=== PATIENT | female | born 1960 | race Caucasian/White ===

== ENCOUNTER 2016-07-01 10:38 | Observation (INO) | payer MEDICARE, MEDICAID ==
[~2016-07-01] VITALS: Ht 167.6 cm; Wt 63.6 kg
[~2016-07-01 10:38] MED LIST: GABA-502 PO; LISI10TA PO; MS30TCR PO; ONDA4TAB6 PO; OXYC10TA8 PO; POLY17PO6 PO; SENN-133 PO
[2016-07-01 10:45] VITALS: BP 145/96; PULSE 92; RESP 16; O2SAT 97
--- NOTE | 2016-07-01 10:47 | ED.REPORT ---
HPI-Abd Pain F 40 and Over Date of Service Jul 01, 2016 ED Provider: Heriberto Mathews DO A 56 year old female with a history of hypertension, peripheral neuropathy, chronic back pain, and recurrent N/V presents to the ED complaining of intractable vomiting that began yesterday. Associated symptoms include mild abdominal tenderness, subjective fever and chills. Patient took Zofran 4 hours ago with no relief. She been experiencing chronic N/V for the past year. She currently takes 4 10mg of oxycodone per day for chronic pain and Promethazine/ Zofran for recurrent nausea vomiting. She denies cough with sputum or mucus, dysuria or diarrhea. Nursing Notes Stated Complaint: NAUSEA/VOMITING Chief Complaint: Female Abdominal Pain Nursing Notes Reviewed: Yes Allergies: Coded Allergies: Sulfa (Sulfonamide Antibiotics) (Verified Allergy, Intermediate, 07/01/16) Scheduled Gabapentin (Gabapentin) 300 Mg Capsule 900 MG PO TID Lisinopril (Lisinopril) 10 Mg Tablet 10 MG PO DAILY Morphine Sulfate ER (MS Contin) 30 Mg Tablet.er 30 MG PO BID Scheduled PRN Ondansetron (Zofran) 4 Mg Tablet 4 MG PO Q8H PRN PRN For Nausea Polyethylene Glycol 3350 (Miralax) 17 Gm Powd.pack 17 GM PO DAILY PRN PRN For Constipation Sennosides (Senna) 8.6 Mg Tablet 17.2 MG PO BID PRN PRN For Constipation oxyCODONE (oxyCODONE) 10 Mg Tablet 10 MG PO Q4-6H PRN PRN For Pain General Time Seen by MD: 10:44 Chief Complaint Vomiting mild Hx Obtained From: Patient Arrived By: Walk-in Sudden in Onset?: No Onset Occurred: Yesterday Symptom Duration: Since onset Progression since Onset: Unchanged Location: : Epigastric Quality: Cramping Radiation: : Does not radiate Severity: Current: Mild Severity: Maximum: Mild Associated with: Reports: Nausea, Vomiting Pertinent Negative: Pt denies other symptoms Recent Healthcare: Recent doctor visit, Recent hospitalization Risk Factors )( AAA Risk Stratification Risk factors reviewed Past Medical History Past Medical History Notes: -- [facility] is PCP Chronic Pain: MS Contin 30 BID, Oxycodone 10mg 4x/d, and Gabapentin per note 06/10/16 Patient admitted 06/10- for intractable NV/cyclic vomiting Past Medical History Scoliosis. Back pain Hypertension. Peripheral neuropathy following Hooper gloria surgery. Pt has h/o [facility] ED visits for intractible N/V Reports: Hypertension Past Surgical History 6x Back surgeries including: Spinal cord stimulator implant. Hooper gloria placement and replacement. Debridement of ulcer on her left foot. Vertebral fracture repair July 2014. Multiple epidurals for back pain relief. 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 Ambulatory at baseline with braces. lives by self Ambulatory Status Cane Review of Systems Constitutional: Reports: Chills, Fever Respiratory: Denies: Non-productive cough, Shortness of breath GI: Reports: Abdominal pain, Nausea, Vomiting, Denies: Diarrhea Female: Denies: Dysuria Complete sys rev & neg: except as marked. Physical Exam Vital Signs Vital Signs (First) Date Time Temp Pulse Resp B/P Pulse Ox O2 Delivery O2 Flow Rate FiO2 07/01/16 10:45 36.7 92 16 145/96 97 Room Air 07/01/16 14:18 2 Initial VS: Reviewed Head / Eyes: Atraumatic, Normocephalic, PERRL Extremities: Vascular intact, Neuro intact, No swelling, No tenderness Skin: Warm, Dry, No cyanosis Neurologic: Alert, Oriented, Nonfocal Psychiatric: Mood/affect normal, Behavior normal, Normal thought content General/Constitutional: Awake, Alert Respiratory / Chest: Atraumatic, Breath sounds NL, Breath sounds = bilat Cardiovascular: Heart rate NL, Regular rhythm, Heart sounds NL Abdomen: Atraumatic, Soft, Non-tender Back: Atraumatic, Inspection NL Interpretation & Diagnostics Lab Results Interpretation Result Diagram: 07/01/16 1300 07/01/16 1300 Test 07/01/16 13:00 07/01/16 13:36 White Blood Count 5.8th/mm3 (3.8-10.1) Red Blood Count 4.49mil/mm3 (3.90-5.20) Hemoglobin 12.9g/dL (12.0-15.6) Hematocrit 37.4% (35.0-46.0) Mean Corpuscular Volume 83.3fL (81-100) Mean Corpuscular Hemoglobin 28.7pg (27.0-35.0) Mean Corpuscular Hemoglobin Concent 34.5% (32.0-37.0) Red Cell Distribution Width 12.0% (12.3-15.4) Platelet Count 262bil/L (150-400) Neutrophils (%) (Auto) 72.4% (40-74) Lymphocytes (%) (Auto) 19.4% (14-46) Monocytes (%) (Auto) 6.9% (4-12) Eosinophils (%) (Auto) 0.7% (0-5) Basophils (%) (Auto) 0.3% (0-3) Sodium Level 135mEq/L (134-144) Potassium Level 4.2mEq/L (3.5-5.2) Chloride Level 100mEq/L (97-108) Carbon Dioxide Level 22mmol/L (18-29) Blood Urea Nitrogen 7mg/dL (6-24) Creatinine 0.42mg/dL (0.57-1.00) Estimat Glomerular Filtration Rate 223mL/min (>59) Glucose Level 116mg/dL (60-99) Calcium Level 9.0mg/dL (8.5-10.1) Magnesium Level 2.1mg/dL (1.6-2.6) Total Bilirubin 0.4mg/dL (0.0-1.2) Aspartate Amino Transf (AST/SGOT) 22U/L (0-50) Alanine Aminotransferase (ALT/SGPT) 13U/L (0-32) Alkaline Phosphatase 70U/L (25-150) Total Protein 7.0g/dL (6.4-8.4) Albumin 3.9g/dL (3.4-5.0) Lipase 29U/L (13-60) Hold Alexis Top Tube Received (Received) Re-Eval/Medical Decision Med Decision/Clinical Course Intractable vomiting, patient has failed 3 by mouth trials and multiple antiemetics. She will be admitted. Re-Evaluation/Progress #1: Time of Eval: 12:00 Patient Status: Condition improved Re-Evaluation/Progress Note: Patient is rechecked. She denies using THC. Re-Evaluation/Progress #2: Time of Eval: 12:01 Patient Status: Condition improved Re-Evaluation/Progress Note: Patient is rechecked. Patient failed the premethozine PO trial and the Haldol trail. She is informed of the updated treatment plan. Re-Evaluation/Progress #3: Time of Eval: 13:40 Patient Status: Condition improved Re-Evaluation/Progress Note: Patient is rechecked. She is requesting admission to help control her nausea. Consultation : Referral / Consult Name: Yoana Weir MD Consulted With: Hospitalist Call Returned at: 14:23 Rest Room Attendant: Will see patient, Agrees with eval, Agrees with plan, Accepts admit Counseled Regarding: Diagnosis, Lab results, Need for admission Discharge & Departure Primary Impression: Vomiting Vomiting type: unspecified Vomiting Intractability: intractable Nausea presence: with nausea Qualified Code: R11.2 - Nausea with vomiting, unspecified Additional Impression: Nausea Disposition: Home Discharge Condition All VS Reviewed: Yes Condition: Stable Referrals: OTHER,PHYSICIAN (PCP) Scribe Attestation Portions of this note were transcribed by Sylvain Berry. I, Dr. Mathews personally performed the history, physical exam and medical decision-making; I reviewed and confirmed the accuracy of the information in the transcribed note. Signed by: Sylvain Berry, 07/01/16, 1324 Heriberto Mathews DO Jul 01, 2016 10:47 SYLVAIN BERRY Jul 01, 2016 10:56
[2016-07-01] MEDS ORDERED: Ondansetron 8 mg ODT Tablet PO ONE (10:50)
[2016-07-01] MEDS ORDERED: oxyCODONE 1 mg/mL 5 mL Liquid PO ONE (10:55)
[2016-07-01] MEDS ORDERED: Promethazine 25 mg/mL Inj IM ONE (10:55)
[2016-07-01] MEDS ORDERED: Haloperidol Decanoate 50 mg/mL Inj IM ONE (12:10)
[2016-07-01] MEDS ORDERED: Haloperidol 5 mg/mL Inj IM ONE (12:15)
[2016-07-01] MEDS ORDERED: 0.9% Sodium Chloride 1,000 ML IV ONE (12:38)
[2016-07-01] MEDS ORDERED: MetoCLOpramide 5 mg/mL 2 mL Inj IVPUSH ONE (12:40)
[2016-07-01] MEDS ORDERED: Pantoprazole 4 mg/mL 10 mL Inj IVPUSH ONE (12:40)
[2016-07-01] MEDS ORDERED: HYDROmorphone 1 mg/mL Inj IVPUSH ONE (12:40)
[2016-07-01] MEDS ORDERED: Ondansetron 2 mg/mL 2 mL Inj IVPUSH PRN ×2 (12:40→14:25)
[2016-07-01 13:28] LABS: BASOPHILS % (AUTO) 0.3 % (0-3); EOSINOPHILS % (AUTO) 0.7 % (0-5); MONOCYTES % (AUTO) 6.9 % (4-12); Mean Corpuscular Hemoglobin 28.7 pg (27.0-35.0); Mean Corpuscular Volume 83.3 fL (81-100); NEUTROPHILS % (AUTO) 72.4 % (40-74); Platelet Count 262 bil/L (150-400)
[2016-07-01 13:50] LABS: Magnesium 2.1 mg/dL (1.6-2.6)
[2016-07-01 14:00] VITALS: BP 111/68; PULSE 84; RESP 12; O2SAT 91
[2016-07-01 14:18] VITALS: O2SAT 96
[2016-07-01] MEDS ORDERED: Alum-Mag Hydrox-Simeth 30 mL Suspension PO PRN (14:25)
[2016-07-01 15:30] VITALS: BP 104/71; PULSE 76; RESP 15; O2SAT 98
[2016-07-01] MEDS ORDERED: Non-Formulary Medication (oxyCODONE 10 MG) PO PRN (16:05)
[2016-07-01] MEDS ORDERED: Polyethylene Glycol (PEG) 17 Gm Powder PO PRN (16:05)
[2016-07-01] MEDS ORDERED: ONDANSETRON 4 MG PO PRN (16:05)
--- NOTE | 2016-07-01 16:10 | PCM.HPMED ---
Subjective Date of Service Jul 01, 2016 Primary Provider: Admitting Physician: Yoana Weir MD Primary Care Physician: Other,Physician Attending Physician: Yoana Weir MD Admit Status: From the Emergency Department Chief Complaint: Intractable recurrent vomiting for 24 hours. History of Present Illness: Not responding to 4 different antiemetics trialed in the emergency department before decision to admit. She has been admitted multiple times in 2016 and prior for the same diagnosis. I saw her myself just 3 weeks ago. She has had 2 days of GI flu symptoms with her last meal being breakfast yesterday. She has been vomiting and has been unable to retain her MS Contin and oxycodone pain regimen, with resultant increase in bilateral leg pain related to spinal etiologies. She clearly has cyclic vomiting. I counted 17 ER visits with at least 7 hospitalizations over the last 2 years to this hospital alone. She says her primary care physician is Dr. Pate in [place] , but that she does not have a GI doctor, remarkably. She attends with the pain clinic and is scheduled to have a pain pump put in later this week. Apparently she has never had one of those. 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 She denies the use of marijuana or cigarettes. There has been no diarrhea or abdominal pain. She has no fevers, muscle aches or coughing. d Review of Systems: Review of Systems: There has been no chest pain, abdominal pain, fevers, chills, sweats, seizures, bleeding, dysuria, headaches, shortness of breath, coughing. She has bilateral back and leg pain along with vomiting as her main complaint. Allergies Coded Allergies: Sulfa (Sulfonamide Antibiotics) (Verified Allergy, Intermediate, 07/01/16) Home Medications MEDICATIONS AT HOME: 1. Gabapentin 900 mg three times daily. 2. Lisinopril 10 mg daily. 3. Morphine sulfate extended release 30 mg twice daily. 4. Oxycodone 10 mg every 4-6 hours as needed for pain. PMH PMH She has had eight back surgeries. Hooper rods. First surgery when she was 18 years old. She has had anterior and posterior approaches. Screws in her ileum. Congenital scoliosis. Chronic pain secondary to all her back surgeries. Hypertension. Three C-sections. Right total knee arthroplasty. Nerve stimulator. Family History Family History FAMILY HISTORY: Mom at 47. Dad alive and healthy; has a history of colorectal cancer. Sister alive and healthy. 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 Denies smoking, alcohol, or illicit drugs. 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 Exam Vital Signs Vital Sign - Last Date Time Temp Pulse Resp B/P Pulse Ox O2 Delivery O2 Flow Rate FiO2 07/01/16 14:18 96 Nasal Cannula 2 07/01/16 14:00 84 12 111/68 07/01/16 10:45 36.7 Exam Exam Alert and oriented in mild abdominal/GI distress. Pupils are equally round and reactive to light and accommodation. Extraocular muscles are intact, sclera are pink and nonicteric. Throat looks normal, there is no lymph nodes felt head, neck, supraclavicular area. There is no thyromegaly. JVD is less than 6 cm with no carotid bruits are heard. Heart is regular rate and rhythm without murmur. Lungs are clear to auscultation bilaterally Abdomen is soft with bowel sounds positive and no tenderness or organomegaly. Extremities have no ankle edema. Skin has no rash or jaundice. Neuro exam is normal with DTRs symmetric, motor function 5 out of 5 throughout, cranial nerves II through XII tested intact. Gait and balance are not tested Lab and Diagnostics Result Diagram: 07/01/16 1300 07/01/16 1300 Assessment & Plan Acute gastroenteritis/cyclic vomiting -Continue IV fluid hydration and antiemetics. -Clear liquid diet and advance as tolerated. Opiate dependency/withdrawal -Resume MS Contin, along with oxycodone. -If unable to retain oral opiates then dose with IV Dilaudid. Hypertension -Continue Lisinopril home dose Chronic Low Back Pain -Continue Gabapentin -Continue followup for pain pump this week at . Yoana Weir MD Jul 01, 2016 15:24
--- NOTE | 2016-07-01 17:52 | NUR ---
Observation information provided and explained.
[2016-07-01] MEDS: 0.9% Sodium Chloride 1,000 ML IV SCH (18:57)
--- NOTE | 2016-07-01 19:56 | NUR ---
Pt on Unit Received report from Jim RN at 1435, pt arrived on unit at 1505 via wheelchair. Pt had no c/o nausea/vomiting but rated pain a 6/10. States she has chronic back and leg pain from surgery for scoliosis. Pt has IV in L wrist SL, hung NS and started it at 100mL/hr. Diet is clears, advance as tolerated, pt tolerating water and jello. Contacted MD for PRN pain medication order. WCTM pt for increasing/worsening N/V.
[2016-07-01] MEDS: Morphine ER 30 mg (MS Contin) Tablet PO SCH (20:22)
[2016-07-01 20:33] VITALS: BP 125/80; PULSE 88; RESP 16; O2SAT 95
--- NOTE | 2016-07-01 23:03 | NUR ---
Pain Pt. has not had any nausea or vomiting witnessed so far this shift. Pt. was complaining of pain in her legs. Scheduled MS Contin given. Pt. states that the pain regimen is currently noneffective. This RN reminded pt. that the goal of this stay is to decrease nausea and vomiting. MD paged about gabapentin, which MD started for tomorrow. This RN is encouraging more PO intake, to see if pt. can advance diet. So far pt. is tolerating liquids well. Will continue to monitor.
[2016-07-02 00:09] VITALS: BP 133/82; PULSE 81; RESP 16; O2SAT 95
[2016-07-02] MEDS: 0.9% Sodium Chloride 1,000 ML IV SCH ×2 (03:34→10:23)
[2016-07-02 04:05] VITALS: BP 139/88; PULSE 81; RESP 16; O2SAT 95
[2016-07-02] MEDS: Morphine ER 30 mg (MS Contin) Tablet PO SCH (08:52)
[2016-07-02 09:56] VITALS: BP 153/93; PULSE 90; RESP 18; O2SAT 95
--- NOTE | 2016-07-02 12:34 | PCM.DIMED ---
Discharge Instructions Date of Service Jul 02, 2016 Dates of Hospitalization Jul 01, 2016 at 14:51 Discharge Diagnosis Discharge Diagnosis # Acute gastroenteritis/cyclic vomiting of unclear exact etiology. present on admission. Resolved. # Chronic Hypertension. stable. # Chronic Low Back Pain. stable Diet Low fat, Low Sodium, Heart Healthy Activity No restrictions Call your provider Fever or Chills, Shortness of breath, Bleeding, Chest pain, Vomitting, Excessive diarrhea Patient Instructions Seek immediate medical attention if any new or worsening signs or symptoms occur. Follow-up plan 1. Followup with primary care provider in 3-5 days and for consideration of further gastroenterology referral as outpatient. Rubén Norman Jul 02, 2016 12:34
--- NOTE | 2016-07-02 15:27 | NUR ---
Discharge No N/V this shift and pt states "I need to go home today." agreeable with discharge. Pt off unit at 1500 in w/c to private vehicle with family. Iv removed intact, pt pain well controlled at 5/10, VSS, no N/V, A&O x 3, MILLAN. No new rx's given, pt has care notes and discharge paper work. All questions answered and pt has all belongings.
--- NOTE | 2016-07-02 18:22 | PCM.DC.MED ---
Discharge Summary Date of Service Jul 02, 2016 Dates of Hospitalization Date of Hospital Admission Jul 01, 2016 at 14:51 Date of Discharge: Jul 02, 2016 Providers: Admitting Physician: Yoana Weir MD Primary Care Physician: Other,Physician Attending Physician: Yoana Weir MD Diagnosis at Time of Discharge Diagnosis at Time of Discharge # Acute gastroenteritis/cyclic vomiting of unclear exact etiology. present on admission. Resolved. # Chronic Hypertension. stable. # Chronic Low Back Pain. stable Brief History As noted in H&P by Dr. Weir: Not responding to 4 different antiemetics trialed in the emergency department before decision to admit. She has been admitted multiple times in 2016 and prior for the same diagnosis. I saw her myself just 3 weeks ago. She has had 2 days of GI flu symptoms with her last meal being breakfast yesterday. She has been vomiting and has been unable to retain her MS Contin and oxycodone pain regimen, with resultant increase in bilateral leg pain related to spinal etiologies. She clearly has cyclic vomiting. I counted 17 ER visits with at least 7 hospitalizations over the last 2 years to this hospital alone. She says her primary care physician is Dr. Pate in [place] , but that she does not have a GI doctor, remarkably. She attends with the pain clinic and is scheduled to have a pain pump put in later this week. Apparently she has never had one of those. 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 She denies the use of marijuana or cigarettes. There has been no diarrhea or abdominal pain. She has no fevers, muscle aches or coughing. Hospital Course # Acute gastroenteritis/cyclic vomiting of unclear exact etiology. present on admission. Resolved. - pt reports complete resolution of her presenting symptoms and insisting on being discharged home [facility] today. # Chronic Hypertension. stable. # Chronic Low Back Pain. stable by day of d/c abdomen soft, nt, nd, +bs Exam Vital Signs (Last) Date Time Temp Pulse Resp B/P Pulse Ox O2 Delivery O2 Flow Rate FiO2 07/02/16 09:56 36.8 90 18 153/93 95 Room Air 07/01/16 15:30 2.00 Test 07/01/16 13:00 07/01/16 13:36 07/02/16 07:00 White Blood Count 5.8th/mm3 (3.8-10.1) Red Blood Count 4.49mil/mm3 (3.90-5.20) Hemoglobin 12.9g/dL (12.0-15.6) Hematocrit 37.4% (35.0-46.0) Mean Corpuscular Volume 83.3fL (81-100) Mean Corpuscular Hemoglobin 28.7pg (27.0-35.0) Mean Corpuscular Hemoglobin Concent 34.5% (32.0-37.0) Red Cell Distribution Width 12.0% (12.3-15.4) Platelet Count 262bil/L (150-400) Neutrophils (%) (Auto) 72.4% (40-74) Lymphocytes (%) (Auto) 19.4% (14-46) Monocytes (%) (Auto) 6.9% (4-12) Eosinophils (%) (Auto) 0.7% (0-5) Basophils (%) (Auto) 0.3% (0-3) Magnesium Level 2.1mg/dL (1.6-2.6) Total Bilirubin 0.4mg/dL (0.0-1.2) Aspartate Amino Transf (AST/SGOT) 22U/L (0-50) Alanine Aminotransferase (ALT/SGPT) 13U/L (0-32) Alkaline Phosphatase 70U/L (25-150) Total Protein 7.0g/dL (6.4-8.4) Albumin 3.9g/dL (3.4-5.0) Lipase 29U/L (13-60) Hold Alexis Top Tube Received (Received) Sodium Level 141mEq/L (134-144) Potassium Level 4.5mEq/L (3.5-5.2) Chloride Level 105mEq/L (97-108) Carbon Dioxide Level 21mmol/L (18-29) Blood Urea Nitrogen 6mg/dL (6-24) Creatinine 0.57mg/dL (0.57-1.00) Estimat Glomerular Filtration Rate 157mL/min (>59) Glucose Level 104mg/dL (60-99) Calcium Level 9.0mg/dL (8.5-10.1) Discharge Medications Discharge Medications Gabapentin (Gabapentin) 300 Mg Capsule 900 MG PO TID (Reported) Lisinopril (Lisinopril) 10 Mg Tablet 10 MG PO DAILY (Reported) Morphine Sulfate ER (MS Contin) 30 Mg Tablet.er 30 MG PO BID Prescribed by: DENISSE HO MD As needed Ondansetron (Zofran) 4 Mg Tablet 4 MG PO Q8H PRN PRN For Nausea Prescribed by: SANTANA GUZMAN MD Polyethylene Glycol 3350 (Miralax) 17 Gm Powd.pack 17 GM PO DAILY PRN PRN For Constipation Prescribed by: HOUSTON JAIME MD Sennosides (Senna) 8.6 Mg Tablet 17.2 MG PO BID PRN PRN For Constipation Prescribed by: HOUSTON JAIME MD oxyCODONE (oxyCODONE) 10 Mg Tablet 10 MG PO Q4-6H PRN PRN For Pain Prescribed by: DENISSE HO MD Followup Plan Disposition: Home Follow-up plan 1. Followup with primary care provider in 3-5 days and for consideration of further gastroenterology referral as outpatient. Discharge Diet: Low fat, Low Sodium, Heart Healthy Discharge Activity: No restrictions Patient Instructions Seek immediate medical attention if any new or worsening signs or symptoms occur. Time spent 30 min Rubén Norman Jul 02, 2016 18:21
== END 2016-07-02 15:10 | disposition home or self-care (01) ==
LOC: SED 10:38 → OSC 14:51
PROVIDERS: ADMIT Family Medicine; ATTEND Family Medicine
DX: R11.2 Nausea with vomiting, unspecified (principal); R10.13 Epigastric pain; I10 Essential (primary) hypertension; Z88.2 Allergy status to sulfonamides; Q67.5 Congenital deformity of spine; G89.4 Chronic pain syndrome; F11.23 Opioid dependence with withdrawal; Z96.651 Presence of right artificial knee joint; G62.9 Polyneuropathy, unspecified
CPT/HCPCS: 36415; 80048; 80053; 83690; 83735; 85025; 96361; 96372; 96374; 96375; 96376; 99285; G0378; J1170; J1630; J2405; J2765; J7030

== ENCOUNTER 2016-07-08 05:42 | Observation (INO) | payer MEDICARE, MEDICAID ==
[~2016-07-08] VITALS: Ht 167.6 cm; Wt 71.5 kg
[2016-07-08 05:49] VITALS: BP 149/101; PULSE 91; RESP 18; O2SAT 98
--- NOTE | 2016-07-08 06:16 | ED.REPORT ---
HPI-Abd Pain F 40 and Over Date of Service Jul 08, 2016 ED Provider: Niko Leyva MD Pt is a 56 year old female with a history of chronic pain with multiple ED visits for intractable nausea and vomiting who presents to the ED via EMS with concerns for intractable nausea and vomiting that started roughly 24 hours ago. She reports that her prescribed anti-nausea medications have not been alleviating her symptoms. Pt reports abdominal discomfort, mild constipation, diaphoresis and chills, but denies any hematemesis, diarrhea, fevers, chest pain , or shortness of breath. Her last bowel movement was yesterday, she reports a small amount of blood present. She states that she has recently started a trial for a morphine pump, in order to control her ongoing chronic pain. She has no other complaints. Nursing Notes Stated Complaint: NAUSEA/VOMITING Chief Complaint: Female Abdominal Pain Nursing Notes Reviewed: Yes Allergies: Coded Allergies: Sulfa (Sulfonamide Antibiotics) (Verified Allergy, Intermediate, 07/08/16) Scheduled Gabapentin (Gabapentin) 300 Mg Capsule 900 MG PO TID Lisinopril (Lisinopril) 10 Mg Tablet 10 MG PO DAILY Morphine Sulfate ER (MS Contin) 30 Mg Tablet.er 30 MG PO BID Scheduled PRN Ondansetron (Zofran) 4 Mg Tablet 4 MG PO Q8H PRN PRN For Nausea Polyethylene Glycol 3350 (Miralax) 17 Gm Powd.pack 17 GM PO DAILY PRN PRN For Constipation Sennosides (Senna) 8.6 Mg Tablet 17.2 MG PO BID PRN PRN For Constipation oxyCODONE (oxyCODONE) 10 Mg Tablet 10 MG PO Q4-6H PRN PRN For Pain General Time Seen by MD: 05:59 Chief Complaint Abdominal pain, Vomiting moderate Hx Obtained From: Patient Arrived By: Ambulance Sudden in Onset?: Yes Onset Occurred: 9 - 12 hours ago Symptom Duration: Since onset Location: : Diffuse: LLQ Quality: Painful Radiation: : LLQ Severity: Current: Mild Severity: Maximum: Moderate Associated with: Reports: Vomiting Similar Sx Previous: Yes Past Medical History Past Medical History Notes: -- [facility]. [facility] is PCP Chronic Pain: MS Contin 30 BID, Oxycodone 10mg 4x/d, and Gabapentin per note 12/17/16 Patient admitted 06/10- for intractable NV/cyclic vomiting Past Medical History Scoliosis. Back pain Hypertension. Peripheral neuropathy following Hooper gloria surgery. Pt has h/o [facility] ED visits for intractible N/V Reports: Hypertension Past Surgical History 6x Back surgeries including: Spinal cord stimulator implant. Hooper gloria placement and replacement. Debridement of ulcer on her left foot. Vertebral fracture repair July 2014. Multiple epidurals for back pain relief. 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 Ambulatory at baseline with braces. lives by self Ambulatory Status Cane Review of Systems Constitutional: Denies: Chills, Fever, Malaise, Weakness - generalized Respiratory: Denies: Non-productive cough, Shortness of breath, Wheezing Cardiovascular: Denies: Chest pain, Syncope GI: Reports: Abdominal pain, Constipation, Nausea, Vomiting, Denies: Diarrhea Female: Denies: Dysuria, Flank pain, Urinary frequency, Urinary urgency Musculoskeletal: Denies: Back pain, Neck pain Complete sys rev & neg: except as marked. Physical Exam Vital Signs Vital Signs (First) Date Time Temp Pulse Resp B/P Pulse Ox O2 Delivery O2 Flow Rate FiO2 07/08/16 05:49 36.4 91 18 149/101 98 Room Air Initial VS: Reviewed Head / Eyes: Atraumatic, Normocephalic, PERRL ENT: Mucous membranes moist, Conjunctiva normal, No scleral icterus Neck: Supple, Non-tender, Full range of motion Skin: Warm, Dry, No cyanosis Neurologic: Alert, Oriented, Nonfocal Psychiatric: Mood/affect normal, Behavior normal, Normal thought content General/Constitutional: Awake, Alert, Cooperative Appearance / Presentation: Positive: Uncomfortable Respiratory / Chest: Atraumatic, Breath sounds NL, Breath sounds = bilat, No respiratory distress Cardiovascular: Heart rate NL, Regular rhythm, Heart sounds NL, No gallop, No murmurs, No rubs Abdomen: Atraumatic, Soft, No guarding, No rebound Tenderness/Guarding/Rebound: Positive: Tender diffuse Back: Atraumatic, Inspection NL, No midline vertebral tend, No CVA tenderness Interpretation & Diagnostics Lab Results Interpretation Result Diagram: 07/08/16 0700 07/08/16 0700 Test 07/08/16 07:00 White Blood Count 7.8th/mm3 (3.8-10.1) Red Blood Count 4.56mil/mm3 (3.90-5.20) Hemoglobin 13.4g/dL (12.0-15.6) Hematocrit 37.7% (35.0-46.0) Mean Corpuscular Volume 82.7fL (81-100) Mean Corpuscular Hemoglobin 29.4pg (27.0-35.0) Mean Corpuscular Hemoglobin Concent 35.5% (32.0-37.0) Red Cell Distribution Width 12.2% (12.3-15.4) Platelet Count 289bil/L (150-400) Neutrophils (%) (Auto) 64.5% (40-74) Lymphocytes (%) (Auto) 23.6% (14-46) Monocytes (%) (Auto) 7.9% (4-12) Eosinophils (%) (Auto) 2.8% (0-5) Basophils (%) (Auto) 0.8% (0-3) Sodium Level 136mEq/L (134-144) Potassium Level 4.5mEq/L (3.5-5.2) Chloride Level 99mEq/L (97-108) Carbon Dioxide Level 23mmol/L (18-29) Blood Urea Nitrogen 12mg/dL (6-24) Creatinine 0.54mg/dL (0.57-1.00) Estimat Glomerular Filtration Rate 167mL/min (>59) Glucose Level 113mg/dL (60-99) Calcium Level 9.3mg/dL (8.5-10.1) Magnesium Level 2.3mg/dL (1.6-2.6) Total Bilirubin 0.2mg/dL (0.0-1.2) Aspartate Amino Transf (AST/SGOT) 19U/L (0-50) Alanine Aminotransferase (ALT/SGPT) 11U/L (0-32) Alkaline Phosphatase 81U/L (25-150) Total Protein 7.3g/dL (6.4-8.4) Albumin 4.2g/dL (3.4-5.0) Lipase 55U/L (13-60) Procalcitonin < 0.05ng/mL (See Comment) Re-Eval/Medical Decision Source of Hx: Old records Re-Evaluation/Progress : Time of Eval: 08:31 Re-Evaluation/Progress Note: Pt is rechecked, she reports that she feels mildly better, but is still nauseated. She is informed of her diagnosis and the plan to admit her at this time. She understands and agrees, all questions are addressed. Consultation : Referral / Consult Name: Mathew Dos Santos MD Consulted With: Hospitalist Call Returned at: 09:04 Restuarant Crew Worker: Will see patient, Agrees with plan, Accepts admit Counseled Regarding: Diagnosis, Lab results, Need for admission Discharge & Departure Primary Impression: Intractable vomiting Vomiting type: unspecified Nausea presence: with nausea Qualified Code: R11.2 - Nausea with vomiting, unspecified Disposition: ADMITTED TO HOSPITAL Discharge Condition All VS Reviewed: Yes Condition: Stable Referrals: OTHER,PHYSICIAN (PCP) Scribe Attestation Portions of this note were transcribed by Kimi Rubin. I, Dr. Leyva personally performed the history, physical exam and medical decision-making; I reviewed and confirmed the accuracy of the information in the transcribed note. Signed by: Kel Tavarez, 07/08/2016 0904 Niko Leyva MD Jul 08, 2016 06:16 SANJIV RUBIN Jul 08, 2016 06:32
[2016-07-08] MEDS ORDERED: 0.9% Sodium Chloride 1,000 ML IV ONE ×2 (06:32)
[2016-07-08] MEDS ORDERED: Dexamethasone 10 mg/mL Inj IVPUSH ONE (06:35)
[2016-07-08] MEDS ORDERED: MetoCLOpramide 5 mg/mL 2 mL Inj IVPUSH ONE (06:35)
[2016-07-08] MEDS ORDERED: Ondansetron 2 mg/mL 2 mL Inj IVPUSH PRN (06:35)
[2016-07-08] MEDS ORDERED: Pantoprazole 4 mg/mL 10 mL Inj IVPUSH ONE (06:35)
[2016-07-08] MEDS ORDERED: Acetaminophen IV 1,000 MG in IV Premix 1 EACH IV ONE (06:35)
[2016-07-08] MEDS ORDERED: Haloperidol 5 mg/mL Inj IVPUSH ONE (06:35)
[2016-07-08 07:19] LABS: BASOPHILS % (AUTO) 0.8 % (0-3); EOSINOPHILS % (AUTO) 2.8 % (0-5); MONOCYTES % (AUTO) 7.9 % (4-12); Mean Corpuscular Hemoglobin 29.4 pg (27.0-35.0); Mean Corpuscular Volume 82.7 fL (81-100); NEUTROPHILS % (AUTO) 64.5 % (40-74); Platelet Count 289 bil/L (150-400)
[2016-07-08 07:32] LABS: Magnesium 2.3 mg/dL (1.6-2.6)
[2016-07-08] MEDS ORDERED: Morphine ER 30 mg (MS Contin) Tablet PO SCH (08:30)
[2016-07-08] MEDS ORDERED: Alum-Mag Hydrox-Simeth 30 mL Suspension PO PRN (09:10)
[2016-07-08] MEDS ORDERED: Polyethylene Glycol (PEG) 17 Gm Powder PO PRN (09:10)
[2016-07-08 09:29] VITALS: BP 144/104; PULSE 76; RESP 18
[2016-07-08 10:15] VITALS: BP 148/91; PULSE 89; RESP 16; O2SAT 95
[2016-07-08] MEDS: Lactated Ringer's 1,000 ML IV SCH ×2 (10:35→20:07)
[2016-07-08] MEDS: Heparin 5,000 Unit/mL Inj SUBQ SCH ×2 (10:36→17:00)
--- NOTE | 2016-07-08 10:59 | NUR ---
Admission I received report from Ginette Khan, SPA MANAGER. patient arrived to room 1019 at 1030hrs. reporting low back pain and bilateral leg pain. rating 7/10, stating that her pain is "getting better" after ER interventions. Patient reports chronic low back and lower extremity pain averaging 4-7/10 at baseline. patient als reports that she has sensory loss and foot drop in right leg/foot at baseline, related to previous injury/surgeries. Med rec completed by [employer] advanced operator maintainer, Gerry Valles. continue with admission process and continue to monitor for worsening symptoms.
[2016-07-08] MEDS: Ondansetron 2 mg/mL 2 mL Inj IVPUSH PRN ×2 (12:22→17:34)
[2016-07-08 13:13] LABS: APPEARANCE,URINE CLEAR (CLEAR,HAZY); COLOR,URINE STRAW (YELLOW); OCCULT BLOOD,URINE NEGATIVE (NEGATIVE); UROBILINOGEN,URINE NORMAL (NORMAL)
[2016-07-08 15:33] VITALS: BP 121/77; PULSE 79; RESP 16; O2SAT 96
--- NOTE | 2016-07-08 16:57 | NUR ---
Observation information provided and explained.
--- NOTE | 2016-07-08 18:18 | NUR ---
Nausea/Pain Since admission earlier today patient reports an improvement with her nausea. reports as mild. she's received 2 doses of IV Zofran 4mg each dose. tolerates clear liquid diet well. patient reporting chronic pain in low back and bilateral LE. back rating 6/10 with baseline 4-6/10 per patient report. LE pain also 6-7/10 during shift, 4-6/10 is baseline per patient report. stating that 6/10 is a tolerable level. PO oxycodone x2 doses on day has been effective in controlling pain. continue to monitor n/v and pain status.
[2016-07-08 20:00] VITALS: BP 137/86; PULSE 79; RESP 18; O2SAT 97
[2016-07-08] MEDS: Morphine ER 30 mg (MS Contin) Tablet PO SCH (20:18)
[2016-07-08] MEDS: Famotidine Inj 20 MG in IV Premix 1 EACH IV SCH (20:19)
[2016-07-09 00:35] VITALS: BP 115/66; PULSE 100; RESP 18; O2SAT 99
[2016-07-09] MEDS: Heparin 5,000 Unit/mL Inj SUBQ SCH ×2 (01:49→09:05)
[2016-07-09 05:42] VITALS: BP 118/70; PULSE 74; RESP 16; O2SAT 96
[2016-07-09] MEDS: Lactated Ringer's 1,000 ML IV SCH (05:48)
--- NOTE | 2016-07-09 05:51 | NUR ---
GI Denies nausea overnight. Tolerating clear liq's. Chronic back and leg pain managed with MS Contin and Oxycodone 10mg Q4hr PRN. No acute changes overnight.
--- NOTE | 2016-07-09 07:13 | PCM.PNMED ---
Subjective Date of Service Jul 09, 2016 Subjective Patient notes no nausea or vomiting overnight. She wishes to progress her diet. She denies any abdominal pain. She was recently hospitalized here for similar July 01 to the . Exam Vital Signs Vital Sign - Last Date Time Temp Pulse Resp B/P Pulse Ox O2 Delivery O2 Flow Rate FiO2 07/09/16 05:42 36.3 74 16 118/70 96 Room Air Intake and Output 07/08/16 07/08/16 07/09/16 Cumulative From/Thru 15:00 23:00 07:00 07/08/16 05:49 - 07/09/16 05:51 Intake Total 1000 ml 1933 ml 2009 ml 4942 ml Output Total 300 ml 300 ml Balance 1000 ml 1633 ml 2009 ml 4642 ml Intake Oral 1240 ml 850 ml 2090 ml IV Total 1000 ml 693 ml 1159 ml 2852 ml Output Urine Total 300 ml 300 ml # Voids 2 2 4 # Bowel Movements 0 0 Exam Constitutional: Middle-aged woman in no acute distress Head: Normocephalic atraumatic Chest: Clear to auscultation Cor: Regular rate and rhythm S1-S2 without murmur Abdomen: Soft nontender bowel sounds present Extremities: No pedal edema noted IVs and Medications Medications Reviewed: Medications were reviewed in detail Lab and Diagnostics Laboratory Tests 72 Hours Test 07/08/16 07:00 07/08/16 12:46 White Blood Count 7.8th/mm3 (3.8-10.1) Red Blood Count 4.56mil/mm3 (3.90-5.20) Hemoglobin 13.4g/dL (12.0-15.6) Hematocrit 37.7% (35.0-46.0) Mean Corpuscular Volume 82.7fL (81-100) Mean Corpuscular Hemoglobin 29.4pg (27.0-35.0) Mean Corpuscular Hemoglobin Concent 35.5% (32.0-37.0) Red Cell Distribution Width 12.2% (12.3-15.4) Platelet Count 289bil/L (150-400) Neutrophils (%) (Auto) 64.5% (40-74) Lymphocytes (%) (Auto) 23.6% (14-46) Monocytes (%) (Auto) 7.9% (4-12) Eosinophils (%) (Auto) 2.8% (0-5) Basophils (%) (Auto) 0.8% (0-3) Sodium Level 136mEq/L (134-144) Potassium Level 4.5mEq/L (3.5-5.2) Chloride Level 99mEq/L (97-108) Carbon Dioxide Level 23mmol/L (18-29) Blood Urea Nitrogen 12mg/dL (6-24) Creatinine 0.54mg/dL (0.57-1.00) Estimat Glomerular Filtration Rate 167mL/min (>59) Glucose Level 113mg/dL (60-99) Calcium Level 9.3mg/dL (8.5-10.1) Magnesium Level 2.3mg/dL (1.6-2.6) Total Bilirubin 0.2mg/dL (0.0-1.2) Aspartate Amino Transf (AST/SGOT) 19U/L (0-50) Alanine Aminotransferase (ALT/SGPT) 11U/L (0-32) Alkaline Phosphatase 81U/L (25-150) Total Protein 7.3g/dL (6.4-8.4) Albumin 4.2g/dL (3.4-5.0) Lipase 55U/L (13-60) Procalcitonin < 0.05ng/mL (See Comment) Urine Color Straw (YELLOW) Urine Appearance Clear (CLEAR,HAZY) Urine pH 7.0 (5.0-8.0) Urine Specific [place] 1.006 (1.003-1.035) Urine Protein Negativemg/dL (NEG,TRACE) Urine Glucose (UA) Negativemg/dL (NEGATIVE) Urine Ketones Negativemg/dL (NEGATIVE) Urine Occult Blood Negative (NEGATIVE) Urine Nitrite Negative (NEGATIVE) Urine Bilirubin Negative (NEGATIVE) Urine Urobilinogen Normalmg/dL (NORMAL) Urine Leukocyte Esterase Negative (NEGATIVE) Urine RBC 0-2/hpf (0-2) Urine WBC 0-5/hpf (0-5) Urine Epithelial Cells Few/hpf (NONE-MOD) Urine Crystals None seen (NONE SEEN) Urine Bacteria None/hpf (NONE-FEW) Urine Hyaline Casts None/lpf (NONE) Urine Granular Casts None seen (NONE SEEN) Urine Waxy Casts None seen (NONE SEEN) Urine Red Blood Cell Casts None seen (NONE SEEN) Urine White Blood Cell Casts None seen (NONE SEEN) Urine Mucus None seen (None Seen) Urine Trichomonas None seen (NONE SEEN) Urine Yeast None (NONE SEEN) Urinalysis Comment None Urine Culture Reflexed Not indicated Result Diagram: 07/08/16 0700 07/08/16 0700 Assessment & Plan Assessment and plan: Intractable nausea vomiting, recurrent, present on admission - Plan to advance diet she requests a soft, low residue diet so we will do this. - Continue with antiemetics when necessary Pain Evaluation: Adequate Pain Control VTE Prophylaxis: Sub-Q Heparin (Unfractionated) Resuscitation Status: CPR: Attempt Resuscitation Time spent 30 minutes Naomi Hernandez MD Jul 09, 2016 07:13
[2016-07-09 07:47] LABS: Mean Corpuscular Hemoglobin 28.3 pg (27.0-35.0); Mean Corpuscular Volume 86.4 fL (81-100)
[2016-07-09] MEDS: Famotidine Inj 20 MG in IV Premix 1 EACH IV SCH (09:05)
[2016-07-09] MEDS: Morphine ER 30 mg (MS Contin) Tablet PO SCH (09:05)
--- NOTE | 2016-07-09 10:03 | PCM.DIMED ---
Discharge Instructions Date of Service Jul 09, 2016 Dates of Hospitalization Jul 08, 2016 at 09:37 Discharge Diagnosis Discharge Diagnosis Intractable nausea vomiting, recurrent Medication Instructions Take her medications as instructed Diet Other (soft, low fiber) Activity No restrictions Call your provider Fever or Chills, Vomitting, Weakness (unilateral) Patient Instructions Follow-up with PCP in: 1 week Naomi Hernandez MD Jul 09, 2016 10:03
--- NOTE | 2016-07-09 10:06 | PCM.DC.MED ---
Discharge Summary Date of Service Jul 09, 2016 Dates of Hospitalization Date of Hospital Admission Jul 08, 2016 at 09:37 Date of Discharge: Jul 09, 2016 Providers: Admitting Physician: Mathew Dos Santos MD Primary Care Physician: Other,Physician Attending Physician: Mathew Dos Santos MD Diagnosis at Time of Discharge Diagnosis at Time of Discharge Intractable nausea vomiting, recurrent Brief History Patient presents with intractable nausea and vomiting which is recurrent. Hospital Course Assessment and plan: Intractable nausea vomiting, recurrent, present on admission - Plan to advance diet she requests a soft, low residue diet so we will do this. - Continue with antiemetics when necessary Exam Vital Signs (Last) Date Time Temp Pulse Resp B/P Pulse Ox O2 Delivery O2 Flow Rate FiO2 07/09/16 05:42 36.3 74 16 118/70 96 Room Air Test 07/08/16 07:00 07/08/16 12:46 07/09/16 06:02 Neutrophils (%) (Auto) 64.5% (40-74) Lymphocytes (%) (Auto) 23.6% (14-46) Monocytes (%) (Auto) 7.9% (4-12) Eosinophils (%) (Auto) 2.8% (0-5) Basophils (%) (Auto) 0.8% (0-3) Magnesium Level 2.3mg/dL (1.6-2.6) Lipase 55U/L (13-60) Procalcitonin < 0.05ng/mL (See Comment) Urine Color Straw (YELLOW) Urine Appearance Clear (CLEAR,HAZY) Urine pH 7.0 (5.0-8.0) Urine Specific [place] 1.006 (1.003-1.035) Urine Protein Negativemg/dL (NEG,TRACE) Urine Glucose (UA) Negativemg/dL (NEGATIVE) Urine Ketones Negativemg/dL (NEGATIVE) Urine Occult Blood Negative (NEGATIVE) Urine Nitrite Negative (NEGATIVE) Urine Bilirubin Negative (NEGATIVE) Urine Urobilinogen Normalmg/dL (NORMAL) Urine Leukocyte Esterase Negative (NEGATIVE) Urine RBC 0-2/hpf (0-2) Urine WBC 0-5/hpf (0-5) Urine Epithelial Cells Few/hpf (NONE-MOD) Urine Crystals None seen (NONE SEEN) Urine Bacteria None/hpf (NONE-FEW) Urine Hyaline Casts None/lpf (NONE) Urine Granular Casts None seen (NONE SEEN) Urine Waxy Casts None seen (NONE SEEN) Urine Red Blood Cell Casts None seen (NONE SEEN) Urine White Blood Cell Casts None seen (NONE SEEN) Urine Mucus None seen (None Seen) Urine Trichomonas None seen (NONE SEEN) Urine Yeast None (NONE SEEN) Urinalysis Comment None Urine Culture Reflexed Not indicated White Blood Count 7.3th/mm3 (3.8-10.1) Red Blood Count 3.81mil/mm3 (3.90-5.20) Hemoglobin 10.8g/dL (12.0-15.6) Hematocrit 32.9% (35.0-46.0) Mean Corpuscular Volume 86.4fL (81-100) Mean Corpuscular Hemoglobin 28.3pg (27.0-35.0) Mean Corpuscular Hemoglobin Concent 32.8% (32.0-37.0) Red Cell Distribution Width 12.3% (12.3-15.4) Platelet Count 262bil/L (150-400) Sodium Level 135mEq/L (134-144) Potassium Level 4.1mEq/L (3.5-5.2) Chloride Level 101mEq/L (97-108) Carbon Dioxide Level 25mmol/L (18-29) Blood Urea Nitrogen 7mg/dL (6-24) Creatinine 0.53mg/dL (0.57-1.00) Estimat Glomerular Filtration Rate 170mL/min (>59) Glucose Level 82mg/dL (60-99) Calcium Level 8.7mg/dL (8.5-10.1) Total Bilirubin 0.4mg/dL (0.0-1.2) Aspartate Amino Transf (AST/SGOT) 16U/L (0-50) Alanine Aminotransferase (ALT/SGPT) 7U/L (0-32) Alkaline Phosphatase 61U/L (25-150) Total Protein 6.0g/dL (6.4-8.4) Albumin 3.5g/dL (3.4-5.0) Discharge Medications Discharge Medications Gabapentin (Gabapentin) 300 Mg Capsule 900 MG PO TID (Reported) Lisinopril (Lisinopril) 10 Mg Tablet 10 MG PO DAILY (Reported) Morphine Sulfate ER (MS Contin) 30 Mg Tablet.er 30 MG PO BID Prescribed by: DENISSE HO MD As needed Ondansetron (Zofran) 4 Mg Tablet 4 MG PO Q8H PRN PRN For Nausea Prescribed by: SANTANA GUZMAN MD Polyethylene Glycol 3350 (Miralax) 17 Gm Powd.pack 17 GM PO DAILY PRN PRN For Constipation Prescribed by: HOUSTON JAIME MD Sennosides (Senna) 8.6 Mg Tablet 17.2 MG PO BID PRN PRN For Constipation Prescribed by: HOUSTON JAIME MD oxyCODONE (oxyCODONE) 10 Mg Tablet 10 MG PO Q4-6H PRN PRN For Pain Prescribed by: DENISSE HO MD Additional med instructions Take her medications as instructed Followup Plan Discharge Diet: Other (soft, low fiber) Discharge Activity: No restrictions Follow-up with PCP in: 1 week Time spent 60 minutes Naomi Hernandez MD Jul 09, 2016 10:06
--- NOTE | 2016-07-09 10:33 | NUR ---
Social Work Note: Initial Assessment/ Discharge Data& Assessment: EMR reviewed. Per pt is medically ready to discharge home via POV. SW met with pt at bedside to confirm discharge plan and assess for any unmet needs, SW role explained. Germaine Lopez is a 56 year old female here for intractable nausea. Per pt is medically improved and ready to discharge home via POV. Pt has Medicare and [facility] supplemental insurance coverage. Pt does not have a current PCP but goes to [facility] when she is ill. SW encouraged her to find a provider to establish care with. Pt lives on [address] with her grown children and is independent at baseline. Pt drives and does not use any formal DME. Pt does occasionally use a walking stick when she leaves her home. Pt has had HH services years ago but does not remember which company. Pt denies SNF hx. Pt denies LTC insurance or VA benefits. Pt states she has DPOA paperwork at home but it is not completed yet. SW encouraged her to complete the paperwork when possible. Pt confirmed one of her children is able to come and transport her home today. Pt denies any other needs. No other discharge needs identified. Plan: Per pt is medically ready to discharge home via POV. Per pt is medically improved. Pt confirmed one of her children is able to come and transport her home today. Pt denies any other needs. No other discharge needs identified. FREDERIC Garcia Addendum: 07/09/16 at 1052 by MUKESH SCHREIBER Amended: Links added.
--- NOTE | 2016-07-09 12:51 | NUR ---
Discharge Pt d/c'd home at 1252. Reviewed d/c instructions w/ patient and answered all questions. IV d/c'd intact. Pt left w/ all belongings, no new RX given. Pt taken to daughter's POV via w/c.
--- NOTE | 2016-08-01 15:45 | PCM.HPMED ---
Subjective Date of Service Jul 08, 2016 Primary Provider: Admitting Physician: Mathew Dos Santos MD Primary Care Physician: Other,Physician Attending Physician: Naomi Hernandez MD Admit Status: From the Emergency Department, Admit to [facility] Team Chief Complaint: 56 yo with history of chronic pain and cyclic vomiting syndrome presents with acute on chronic abdominal pain nausea and vomiting History of Present Illness: Patient presents with intractable nausea and vomiting which is recurrent. She has had hospitalizations approximately once every 1-2 months for similar symptoms. She reports approximately 24 hours of recurrent symptoms of abdominal pain and dry heaves. She does not know precipitant. Symptoms seem typical of her previous episodes. She states that she usually gets better with IV fluids, bowel rest, antiemetics and pain control. She states that she is already feeling significantly better than when she presented to the emergency department during the night. She is interested to advance to oral food intake and feels like she may be ready to go home later today. On review of systems, she denies fever or shaking chill, no significant diarrhea , nausea but only mild emesis, no orthostatic symptoms. Her chronic back pain is at baseline. Review of Systems: 10 system review of systems was performed notable findings are described in history of present illness and PMH. Allergies Coded Allergies: Sulfa (Sulfonamide Antibiotics) (Verified Allergy, Intermediate, 07/31/16) Home Medications Gabapentin 900 mg three times daily. Lisinopril 10 mg daily. Morphine sulfate ER 30 mg twice daily. Oxycodone 10 mg every 4-6 hours as needed PMH # Spinal scoliosis and DJD and status post Hooper gloria surgery # Chronic pain - opioid dependent # Cyclic abdominal pain and vomiting # Hypertension Surgical History # Spinal fusions # # Knee arthroplasty Family History M - at 47. F - colorectal cancer. 1 sister alive and well Social History Hx Alcohol Use: Yes Alcoholic Drinks Per Day: 1-2 month Hx Substance Use: No Hx Tobacco Use: No Smoking Status: Never Smoker Living Arrangement: with Family Additional Information Full code Exam Vital Signs BP 148/91, HR 89, T 36.6, RR 16 Exam General: Middle-aged woman no acute distress HEENT: sclerae anicteric, oral mucosa moist Neck: no JVD Chest: clear to auscultation Cardiac: S1S2, no murmur Abdomen: BS present, mild diffuse tenderness to palpation, no guarding or rebound Extremities: No pitting edema Neuro: A&O, cranial nerves symmetric, motor strength 5/5, coordination normal Lab and Diagnostics Labs WBC 7.8, Hgb 13.4. BUN12, creatinine 0.54 LFTs normal, lipase normal Procalcitonin normal Assessment & Plan 56-year-old woman with cyclic vomiting syndrome and chronic opioid dependent pain disorder presents with recurrence of similar cyclic symptoms. Exam and labs do not suggest significant dehydration at time of admission. Indication for hospital observation is inability to take by mouth hydration and essential pain medications. Symptoms seem to be improving. # Cyclic vomiting and abdominal pain - Anti-emetics - H2 tio - Bowel rest; advance diet to clear liquids as tolerated - Maintenance IV fluids - Repeat BMP in a.m. # Chronic opioid dependent musculoskeletal pain - Parenteral opioids as needed while unable to take by mouth pain medications - Return to her baseline oral medications when taking by mouth # Hypertension - Continue lisinopril VTE prophylaxis - subcutaneous heparin Discharge planning: Patient is admitted for observation with expectation of less than 2 midnight of inpatient care. Pain Evaluation: Adequate Pain Control VTE Prophylaxis: Sub-Q Heparin (Unfractionated) Resuscitation Status: CPR: Attempt Resuscitation Time spent 55 minutes Attending Statement This note was dictated on the basis of assessment performed on 07/08/16. Mathew Dos Santos MD Aug 01, 2016 15:45
== END 2016-07-09 12:53 | disposition home or self-care (01) ==
LOC: EDUNIT# 05:42 → SED 05:42 → EDBD 05:42 → OSC 09:37
PROVIDERS: ADMIT Internal Medicine; ATTEND Specialist
DX: R11.2 Nausea with vomiting, unspecified (principal); G89.29 Other chronic pain; I10 Essential (primary) hypertension; G62.9 Polyneuropathy, unspecified

== ENCOUNTER 2016-07-31 15:00 | Observation (INO) | payer MEDICARE, MEDICAID ==
[~2016-07-31] VITALS: Ht 167.6 cm; Wt 69.2 kg
[2016-07-31 15:19] VITALS: BP 146/93; PULSE 99; RESP 18; O2SAT 98
[2016-07-31] MEDS ORDERED: 0.9% Sodium Chloride 1,000 ML IV ONE (15:33)
[2016-07-31] MEDS ORDERED: Promethazine 25 mg/mL Inj IM ONE (16:00)
[2016-07-31] MEDS ORDERED: HYDROmorphone 1 mg/mL Inj IM ONE (16:00)
[2016-07-31] MEDS ORDERED: MetoCLOpramide 5 mg/mL 2 mL Inj IM ONE (16:00)
--- NOTE | 2016-07-31 16:05 | ED.REPORT ---
HPI-General Illness Date of Service Jul 31, 2016 ED Provider: Niko Leyva MD History of Present Illness: Patient is a 56 y.o. F who presents to the ED with 24 hours of vomiting x10, nausea, subjective fever and chills. Stomach pain descirbed as constant cramping dull tenderness, witout radiation. Improved by nothing, made worse by nothing. 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 Patient has chronic pain in legs and lower back rated 8/10, patient takes pain medication at home MS cotonin 30 mg BID and oxycodone 10 mg QID, pain contract with [facility]. Denies stomach pain, diarrhea, headache, changes in vision, constipation, sweating, recent travel, ETOH use, ilicit drug use. Primary care is in [place]. Nursing Notes Stated Complaint: VOMITING Chief Complaint: vomiting Nursing Notes Reviewed: Yes Allergies: Coded Allergies: Sulfa (Sulfonamide Antibiotics) (Verified Allergy, Intermediate, 07/31/16) Scheduled Gabapentin (Gabapentin) 300 Mg Capsule 900 MG PO TID Lisinopril (Lisinopril) 10 Mg Tablet 10 MG PO DAILY Morphine Sulfate ER (MS Contin) 30 Mg Tablet.er 30 MG PO BID Scheduled PRN Ondansetron (Zofran) 4 Mg Tablet 4 MG PO Q8H PRN PRN For Nausea Polyethylene Glycol 3350 (Miralax) 17 Gm Powd.pack 17 GM PO DAILY PRN PRN For Constipation Sennosides (Senna) 8.6 Mg Tablet 17.2 MG PO BID PRN PRN For Constipation oxyCODONE (oxyCODONE) 10 Mg Tablet 10 MG PO Q4-6H PRN PRN For Pain General Time Seen by MD: 15:10 Chief Complaint Vomiting Hx Obtained From: Patient Arrived By: Ambulance Sudden in Onset?: No Onset Occurred: 1 day ago Location: : Abdomen Quality: Cramping, Dull Radiation: : Does not radiate Severity: Current: Pain level 5 out of 10 Severity: Maximum: Moderate Associated with: Reports: Abdominal pain, Fever, Nasal discharge, Nausea, Vomiting, Denies: Bruising, Chest pain, Cough, Dizziness Past Medical History Past Medical History Notes: -- [facility]. [facility] PCP Chronic Pain: MS Contin 30 BID, Oxycodone 10mg 4x/d, and Gabapentin per note 06/10/16 Patient admitted 06/10- for intractable NV/cyclic vomiting Past Medical History Scoliosis. Back pain Hypertension. Peripheral neuropathy following Hooper gloria surgery. Pt has h/o mulitple ED visits for intractible N/V Reports: Hypertension, Denies: Diabetes mellitus, GERD, Gastritis Past Surgical History 6x Back surgeries including: Spinal cord stimulator implant. Hooper gloria placement and replacement. Debridement of ulcer on her left foot. Vertebral fracture repair July 2014. Multiple epidurals for back pain relief. 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 Ambulatory at baseline with braces. lives by self Ambulatory Status Cane Review of Systems Full Review of Systems Constitutional: Reports: Fever, Denies: Fatigue Eyes: Denies: Diplopia, Eye pain bilateral, Photophobia Ears / Nose / Throat: Reports: Nasal congestion, Denies: Nose bleeding, Sore throat, Throat pain, Throat swelling Respiratory: Denies: Dyspnea on exertion, Hemoptysis, Non-productive cough, Shortness of breath, Wheezing GI: Reports: Abdominal pain, Nausea, Denies: Bloody/tarry stool, Constipation, Diarrhea, Dysphagia, Hematemesis, Hematochezia, Melena Female: Denies: Dysuria, Flank pain, Hematuria, Nocturia Musculoskeletal: Reports: Back pain, Extremity pain Endocrine: Denies: Cold intolerance, Heat intolerance, Polydipsia, Polyphagia, Polyuria Skin: Denies Bruising, Denies Diaphoresis Psychiatric: Denies: Agitation, Anxiety, Change mental status, Confusion Complete sys rev & neg: except as marked. Physical Exam Vital Signs Vital Signs Date Time Temp Pulse Resp B/P Pulse Ox O2 Delivery O2 Flow Rate FiO2 07/31/16 19:45 76 20 155/91 96 Room Air 07/31/16 15:19 36.2 99 18 146/93 98 Room Air p 99 BP 146/83 RR18 T 36.2 98% RA Initial VS: Reviewed General/Constitutional: Well-developed, Well-nourished Head / Eyes: Atraumatic, Normocephalic, PERRL ENT: Mucous membranes moist, Conjunctiva normal, No scleral icterus Neck: Supple, Non-tender, Full range of motion Respiratory: Breath sounds normal, Clear to auscultation, No respiratory distress Cardiovascular: Regular rate & rhythm, Heart sounds normal, Intact distal pulses Abdomen / GI: Soft, No guarding, No distention Lymphatic: No lymphadenopathy Extremities: Vascular intact, Neuro intact Skin: Warm, Dry, No cyanosis Neurologic: Alert, Oriented Psychiatric: Mood/affect normal, Behavior normal Tenderness/Guarding/Rebound: Positive: Tender epigastric, Negative: Belle's sign positive, Rebound localized, Tender flank L, Tender flank R Organomegaly / Mass / Hernia: Negative: Hepatomegaly, Pulsatile mass, Splenomegaly Interpretation & Diagnostics Lab Results Interpretation Result Diagram: 07/31/16 1559 07/31/16 1559 Test 07/31/16 15:59 White Blood Count 7.4th/mm3 (3.8-10.1) Red Blood Count 4.18mil/mm3 (3.90-5.20) Hemoglobin 12.0g/dL (12.0-15.6) Hematocrit 34.4% (35.0-46.0) Mean Corpuscular Volume 82.3fL (81-100) Mean Corpuscular Hemoglobin 28.7pg (27.0-35.0) Mean Corpuscular Hemoglobin Concent 34.9% (32.0-37.0) Red Cell Distribution Width 11.6% (12.3-15.4) Platelet Count 283bil/L (150-400) Neutrophils (%) (Auto) 74.2% (40-74) Lymphocytes (%) (Auto) 17.3% (14-46) Monocytes (%) (Auto) 6.7% (4-12) Eosinophils (%) (Auto) 1.4% (0-5) Basophils (%) (Auto) 0.3% (0-3) Sodium Level 129mEq/L (134-144) Potassium Level 4.4mEq/L (3.5-5.2) Chloride Level 95mEq/L (97-108) Carbon Dioxide Level 20mmol/L (18-29) Blood Urea Nitrogen 12mg/dL (6-24) Creatinine 0.50mg/dL (0.57-1.00) Estimat Glomerular Filtration Rate 182mL/min (>59) Glucose Level 133mg/dL (60-99) Calcium Level 8.3mg/dL (8.5-10.1) Total Bilirubin 0.2mg/dL (0.0-1.2) Aspartate Amino Transf (AST/SGOT) 18U/L (0-50) Alanine Aminotransferase (ALT/SGPT) 10U/L (0-32) Alkaline Phosphatase 88U/L (25-150) Total Protein 6.5g/dL (6.4-8.4) Albumin 4.0g/dL (3.4-5.0) Lipase 59U/L (13-60) Hold Alexis Top Tube Received (Received) Re-Eval/Medical Decision Med Decision/Clinical Course Patient is a 56 y.o. F who presents to the ED with 24 hours of vomiting x10, nausea, subjective fever and chills. Stomach pain descirbed as constant cramping dull tenderness, witout radiation. Patient has had similarsymptoms one month ago, seen in ED 07/11/16 diagnosed with intractable vomiting. DDX Viral gastroenteritis, UTI, GERD, Opoid withdrawal, pancreatitis Ordered CBC, UA, tox screen, Zofran PO Promethazine IM Regaln 10 mg IM Dilaudin 1 mg IM Patient Status: Condition improved Evaluation: Lungs clear, Mental status normal Re-Evaluation/Progress Note: Patient vomited x 2 in ED shortly after IM nausea medication given. Patient states nausea has not improved with medication and has vomited PO medication in ED. Counseled Regarding: Need for admission Discharge & Departure Shift Change Sign-Out Patient Care Transferred: Yes Discussed Complaint(s): Yes Response to Therapy: Unchanged Primary Impression: Intractable nausea and vomiting Disposition: ADMITTED TO HOSPITAL Discharge Condition All VS Reviewed: Yes Condition: Stable Referrals: OTHER,PHYSICIAN (PCP) Attending Statement The patient was seen and examined together with Dr. Wesley Roman on 07/31/16 and I agree with the history, exam and plan as outlined in the note above. WESLEY ROMAN DO Jul 31, 2016 15:33 Kiera Blackman MD Jul 31, 2016 15:40 Niko Leyva MD Jul 31, 2016 23:10
[2016-07-31 16:08] LABS: BASOPHILS % (AUTO) 0.3 % (0-3); EOSINOPHILS % (AUTO) 1.4 % (0-5); MONOCYTES % (AUTO) 6.7 % (4-12); Mean Corpuscular Hemoglobin 28.7 pg (27.0-35.0); Mean Corpuscular Volume 82.3 fL (81-100); NEUTROPHILS % (AUTO) 74.2 % (40-74); Platelet Count 283 bil/L (150-400)
[2016-07-31] MEDS ORDERED: Morphine ER 30 mg (MS Contin) Tablet PO ONE (17:15)
[2016-07-31 19:45] VITALS: BP 155/91; PULSE 76; RESP 20; O2SAT 96
[2016-07-31] MEDS: HYDROmorphone 1 mg/mL Inj IVPUSH PRN (20:00)
[2016-07-31] MEDS: Ondansetron 8 mg ODT Tablet PO PRN (20:00)
[2016-07-31 20:55] VITALS: BP 155/91; PULSE 76; RESP 20; O2SAT 96
[2016-07-31 21:16] VITALS: BP 133/89; PULSE 80; RESP 16; O2SAT 96
[2016-07-31] MEDS ORDERED: Ondansetron 2 mg/mL 2 mL Inj IVPUSH PRN (22:30)
[2016-07-31] MEDS ORDERED: Alum-Mag Hydrox-Simeth 30 mL Suspension PO PRN (22:30)
--- NOTE | 2016-07-31 22:41 | PCM.HPMED ---
Subjective Date of Service Jul 31, 2016 Primary Provider: Admitting Physician: Naomi Hernandez MD Primary Care Physician: Other,Physician Attending Physician: Naomi Hernandez MD Admit Status: From the Emergency Department, 23-Hour Observation Chief Complaint: Intractable nausea vomiting History of Present Illness: This 56-year-old female who presented to the ER with a little over 24 hours of recurrent nausea vomiting. She notes that she may vomit about once every hour and a half or so. She had a difficult time keeping things down. She denies any chills but sometimes feels hot. She does describe some intermittent abdominal pain, diffuse crampy in nature. Denies any diarrhea or constipation. White count 7.4 sodium is noted to be 129. She had similar problems back in June and was admitted overnight here without any particular etiology discovered. Review of Systems: All other review of systems are reviewed and are negative except for as in history of present illness. She does have a history of chronic pain in legs and lower back and is followed by [facility] pain clinic. Allergies Coded Allergies: Sulfa (Sulfonamide Antibiotics) (Verified Allergy, Intermediate, 07/31/16) Home Medications Scheduled Gabapentin (Gabapentin) 300 Mg Capsule 900 MG PO TID Lisinopril (Lisinopril) 10 Mg Tablet 10 MG PO DAILY Morphine Sulfate ER (MS Contin) 30 Mg Tablet.er 30 MG PO BID Scheduled PRN Ondansetron (Zofran) 4 Mg Tablet 4 MG PO Q8H PRN PRN For Nausea Polyethylene Glycol 3350 (Miralax) 17 Gm Powd.pack 17 GM PO DAILY PRN PRN For Constipation Sennosides (Senna) 8.6 Mg Tablet 17.2 MG PO BID PRN PRN For Constipation oxyCODONE (oxyCODONE) 10 Mg Tablet 10 MG PO Q4-6H PRN PRN For Pain PMH Past Medical History Notes: -- [facility]. [facility] is PCP Chronic Pain: MS Contin 30 BID, Oxycodone 10mg 4x/d, and Gabapentin per note 06/10/16 Patient admitted 06/10- for intractable NV/cyclic vomiting Past Medical History Scoliosis. Back pain Hypertension. Peripheral neuropathy following Hooper gloria surgery. Pt has h/o mulitple ED visits for intractible N/V Reports: Hypertension, Denies: Diabetes mellitus, GERD, Gastritis Past Surgical History 6x Back surgeries including: Spinal cord stimulator implant. Hooper gloria placement and replacement. Debridement of ulcer on her left foot. Vertebral fracture repair July 2014. Multiple epidurals for back pain relief. Reports: Appendectomy (40 years ago), Family History Family history of recurrent GI issues Social History Hx Alcohol Use: Yes Hx Substance Use: No Hx Tobacco Use: No Smoking Status: Never Smoker Living Arrangement: with Family Exam Vital Signs Vital Sign - Last Date Time Temp Pulse Resp B/P Pulse Ox O2 Delivery O2 Flow Rate FiO2 07/31/16 21:16 36.8 80 16 133/89 96 Room Air Exam Consttutional: Middle aged female in NAD Head:NC/AT Eyes:PERRLADC<EOMI Mouth:No lesion Neck :No adenopathy Chest:Clear to A COR:RRR,S1,S@ Abd: soft,NT ,BS+ EXtremities:No pedal edema Skin:No rashes Psych:Mood and affect are appropriate Neuro:A +Ox3, motor is intact Lab and Diagnostics Labs Laboratory Tests 72 Hours Test 07/31/16 15:59 White Blood Count 7.4th/mm3 (3.8-10.1) Red Blood Count 4.18mil/mm3 (3.90-5.20) Hemoglobin 12.0g/dL (12.0-15.6) Hematocrit 34.4% (35.0-46.0) Mean Corpuscular Volume 82.3fL (81-100) Mean Corpuscular Hemoglobin 28.7pg (27.0-35.0) Mean Corpuscular Hemoglobin Concent 34.9% (32.0-37.0) Red Cell Distribution Width 11.6% (12.3-15.4) Platelet Count 283bil/L (150-400) Neutrophils (%) (Auto) 74.2% (40-74) Lymphocytes (%) (Auto) 17.3% (14-46) Monocytes (%) (Auto) 6.7% (4-12) Eosinophils (%) (Auto) 1.4% (0-5) Basophils (%) (Auto) 0.3% (0-3) Sodium Level 129mEq/L (134-144) Potassium Level 4.4mEq/L (3.5-5.2) Chloride Level 95mEq/L (97-108) Carbon Dioxide Level 20mmol/L (18-29) Blood Urea Nitrogen 12mg/dL (6-24) Creatinine 0.50mg/dL (0.57-1.00) Estimat Glomerular Filtration Rate 182mL/min (>59) Glucose Level 133mg/dL (60-99) Calcium Level 8.3mg/dL (8.5-10.1) Total Bilirubin 0.2mg/dL (0.0-1.2) Aspartate Amino Transf (AST/SGOT) 18U/L (0-50) Alanine Aminotransferase (ALT/SGPT) 10U/L (0-32) Alkaline Phosphatase 88U/L (25-150) Total Protein 6.5g/dL (6.4-8.4) Albumin 4.0g/dL (3.4-5.0) Lipase 59U/L (13-60) Hold Alexis Top Tube Received (Received) Result Diagram: 07/31/16 1559 07/31/16 1559 Assessment & Plan # Intractable nausea vomiting, acute, present on admission Start clear liquid diet IV Zofran when necessary nausea vomiting Recheck labs in a.m. # Chronic pain, present on admission We will give IV morphine when necessary and will try to see if she can keep down her chronic pain medications orally # Hypertension, chronic, present on admission We will go ahead and dose her oral lisinopril and see if she can keep this down. # DVT prophylaxis Use SCDs #CODE STATUS Full code Time spent 60 minutes Naomi Hernandez MD Jul 31, 2016 22:41
[2016-08-01] MEDS: 0.9% Sodium Chloride 1,000 ML IV SCH ×3 (00:23→14:03)
[2016-08-01] MEDS: HYDROmorphone 1 mg/mL Inj IVPUSH PRN ×6 (00:24→23:30)
[2016-08-01 05:43] VITALS: BP 123/82; PULSE 76; RESP 16; O2SAT 98
--- NOTE | 2016-08-01 06:33 | NUR ---
Admit Pt arrived on unit #[id number] from ED via stretcher with all personal belongings. VSS. Able to slide self to bed. No complaints of n/v. Complained of pain 02/01. Administered Dilaudid , effective. Oriented pt to hospital policy and call light. Allergy defensive secondary coach arm band. Bed locked, low position. Pleasant and cooperative with care.
[2016-08-01 06:42] LABS: BASOPHILS % (AUTO) 0.9 % (0-3); EOSINOPHILS % (AUTO) 4.7 % (0-5); MONOCYTES % (AUTO) 7.3 % (4-12); Mean Corpuscular Hemoglobin 28.7 pg (27.0-35.0); Mean Corpuscular Volume 82.5 fL (81-100); NEUTROPHILS % (AUTO) 51.8 % (40-74); Platelet Count 250 bil/L (150-400)
[2016-08-01] MEDS: Morphine ER 30 mg (MS Contin) Tablet PO SCH ×2 (08:15→21:01)
[2016-08-01] MEDS: Ondansetron 8 mg ODT Tablet PO PRN ×2 (08:34→12:44)
--- NOTE | 2016-08-01 13:51 | NUR ---
Social Work-initial assessment/ readiness for discharge: Data:See initial assessment. Pt is a 56 y/o female who was admitted on 07/31/16 for intractable nausea per H&P. Pt's insurance is [employer] and PCP is [facility]. EMR reviewed. Pt's readmission score is 3-high risk. CHANTELLE met with pt at bedside to discuss discharge planning, SW role explained. Pt resides at home alone on [address] where she remains independent with ADLS. Pt does not use any DME and drives. Pt has no HH or SNF history. Pt has no detention care or VA benefits. SW discussed DPOA/ advanced directive, pt has never completed this, SW offered information, pt states she already has the information at home. Per RN notes,pt has been up independent in her room- no PT needs indicated. Pt's friends to provide transport home. SW provided phone number and plan on white board in room. No anticipated discharge needs. SW will continue to follow if needs arise. Assessment:Pt who is independent at baseline. Plan:Pt to discharge home when medically stable via POV. No anticipated discharge needs. SW will continue to follow if needs arise. FREDERIC Cormier Addendum: 08/01/16 at 1356 by LEONILA SNOW Amended: Links added.
[2016-08-01 14:13] VITALS: BP 126/82; PULSE 86; RESP 16; O2SAT 96
--- NOTE | 2016-08-01 14:23 | NUR ---
Case Management: EASON explained. Patient signed and copy given. Signed copy in chart. [email or web address]>
--- NOTE | 2016-08-01 14:56 | PCM.PNMED ---
Subjective Date of Service Aug 01, 2016 Subjective reports continued nausea and vomiting. unable to tolerate advancing diet Exam Vital Signs Vital Sign - Last Date Time Temp Pulse Resp B/P Pulse Ox O2 Delivery O2 Flow Rate FiO2 08/01/16 14:13 36.4 86 16 126/82 96 Room Air Intake and Output 07/31/16 07/31/16 08/01/16 Cumulative From/Thru 15:00 23:00 07:00 07/31/16 15:19 - 08/01/16 06:25 Intake Total 699 ml 699 ml Balance 699 ml 699 ml IV Total 699 ml 699 ml General: Alert, Oriented X3, Cooperative, No Acute Distress Head: Normal Eyes: Scleral Anicteric Nose: Mucous Membr Moist/Ardsley Mouth: Mucous Membr Moist/[place] Neck: Supple Chest & Lungs: Chest Wall Normal, Clear to auscultation & percussion Cardiovascular: Regular Rate/Rhythm Abdomen: Non-tender, Non-distended, Normoactive bowel tones, Soft Extremities: No cyanosis/clubbing/edma bilat Neurological: Grossly Neurologically Intact, Normal Speech IVs and Medications Medications Reviewed: Medications were reviewed in detail Lab and Diagnostics Result Diagram: 08/01/16 0550 08/01/16 0550 Assessment & Plan 56-year-old female who presented to the ER with a little over 24 hours of recurrent nausea vomiting. She does describe some intermittent abdominal pain, diffuse crampy in nature. Denies any diarrhea or constipation. She had similar problems back in June and was admitted overnight here without any particular etiology discovered. # Intractable nausea vomiting, acute, present on admission. ongoing - c/w anti nausea medication and supportive care - CT abdomen - consider GI consult if symptoms persist and CT unrevealing # Chronic pain, present on admission - c/w supportive care and home meds (if able to tolerate) # Hypertension, chronic, present on admission - c/w home meds Dispo: 1-2 days pending improved GI symptoms Time spent 25 min Rubén Norman Aug 01, 2016 14:56 Rubén Norman Aug 01, 2016 14:56
[2016-08-01] MEDS: Dextrose 5% 0.45% NaCl 1,000 ML IV SCH (16:23)
[2016-08-01 17:02] VITALS: BP 131/86; PULSE 69; RESP 18; O2SAT 96
--- NOTE | 2016-08-01 17:24 | NUR ---
pain/activity/nausea assumed care of patient at 1320. patient with emesis earlier in shift with day rn. medicated with prn zofran with effective results. medicated with prn iv dilaudid per patient request x 1. up in br[place] to ambulate x 1. Dr. Norman notified that patient with emesis earlier in the shift. orders received at that time to change to npo status and to cancell discharge. new ivf started per order. MD ordered cat scan of abdomen and pelvis. when medical center director arrived patient refused ct. states " I would rather not have one here because I have an appointment with a specialist in 2 weeks and they are doing one then, I don't want too much radiation". Dr. Norman notifed and ct cancelled per md order. new orders received at that time for clear liquid diet advance as tolerated. patient updated on new diet. will give report to oncoming rn at 1900.
[2016-08-01 22:17] VITALS: BP 124/81; PULSE 71; RESP 18; O2SAT 98
[2016-08-02] MEDS: Dextrose 5% 0.45% NaCl 1,000 ML IV SCH ×2 (03:51→14:27)
[2016-08-02] MEDS: HYDROmorphone 1 mg/mL Inj IVPUSH PRN ×3 (03:53→12:46)
--- NOTE | 2016-08-02 05:05 | NUR ---
Pain Pt continued to complain of pain 7/10 during the night. Pt requested pain meds every 4 hrs. Medication gave some relief, pain decreased /10. No complaints of n/v during this shift. Call light within reach, using appropriately. Pleasant and cooperative with care.
[2016-08-02 06:07] VITALS: BP 96/65; PULSE 72; RESP 16; O2SAT 95
[2016-08-02] MEDS ORDERED: 0.9% Sodium Chloride 500 ML IV ONE (06:20)
--- NOTE | 2016-08-02 06:38 | NUR ---
BP Pt BP 96/65. notified. New order: NS 500mls, wide open. Will continue to monitor.
[2016-08-02 08:16] VITALS: BP 110/68; PULSE 74; RESP 18; O2SAT 99
[2016-08-02] MEDS: Ondansetron 8 mg ODT Tablet PO PRN ×2 (08:17→12:44)
[2016-08-02] MEDS: Morphine ER 30 mg (MS Contin) Tablet PO SCH (08:18)
--- NOTE | 2016-08-02 12:08 | PCM.DIMED ---
Discharge Instructions Date of Service Aug 02, 2016 Dates of Hospitalization Jul 31, 2016 at 20:38 Discharge Diagnosis Discharge Diagnosis # Acute intractable nausea vomiting of unclear etiology, present on admission. Resolved. # Chronic pain, present on admission. stable # Hypertension, chronic, present on admission. stable Diet Low fat, Low Sodium, Heart Healthy Activity No restrictions Call your provider Fever or Chills, Shortness of breath, Chest pain, Vomitting, Excessive diarrhea Patient Instructions Seek immediate medical attention if any new or worsening signs or symptoms occur. Follow-up plan 1. Followup with primary care provider in 7-10 days as needed 2. Followup with gastroenterology as previously planned Rubén Norman Aug 02, 2016 12:08
--- NOTE | 2016-08-02 12:09 | NUR ---
Social Work-discharge: Data:EMR Reviewed. Pt is on day 2 of hospitalization for intractable nausea per H&P. Pt is medically stable to discharge home today. Pt has been up independent in her room. Pt's friend to provide transport home today. No discharge needs identified. All updated and agreeable to plan. Assessment:Pt who is independent at baseline. Plan:Pt to discharge home today via POV. No discharge needs identified. All updated and agreeable to plan. FREDERIC Cormier
[2016-08-02 14:16] VITALS: BP 124/80; PULSE 83; RESP 18; O2SAT 97
[2016-08-02 15:30] VITALS: BP 123/70; PULSE 84; RESP 18; O2SAT 97
--- NOTE | 2016-08-02 16:01 | NUR ---
Discharge She discharged at 1600 by the charge nurse. Discharge paperwork was given to her. Her IV discontinued intact. She walked out on her own. Addendum: 08/02/16 at 1735 by CARY HAYS RN Correction: Upon speaking with the charge nurse the IV was discontinued, but the patient left before receiving the paperwork.
--- NOTE | 2016-08-02 16:19 | PCM.DC.MED ---
Discharge Summary Date of Service Aug 02, 2016 Dates of Hospitalization Date of Hospital Admission Jul 31, 2016 at 20:38 Date of Discharge: Aug 02, 2016 Providers: Admitting Physician: Naomi Hernandez MD Primary Care Physician: Other,Physician Attending Physician: Naomi Hernandze MD Diagnosis at Time of Discharge Diagnosis at Time of Discharge # Acute intractable nausea vomiting of unclear etiology, present on admission. Resolved. # Chronic pain, present on admission. stable # Hypertension, chronic, present on admission. stable Brief History As noted in H&P by Dr. Hernandez: This 56-year-old female who presented to the ER with a little over 24 hours of recurrent nausea vomiting. She notes that she may vomit about once every hour and a half or so. She had a difficult time keeping things down. She denies any chills but sometimes feels hot. She does describe some intermittent abdominal pain, diffuse crampy in nature. Denies any diarrhea or constipation. White count 7.4 sodium is noted to be 129. She had similar problems back in June and was admitted overnight here without any particular etiology discovered. Hospital Course # Intractable nausea vomiting, acute, present on admission. Resolved - unclear etiology - CT abdomen was ordered but pt refused the study - she has GI f/u as outpatient already setup - tolerating PO diet and patient requesting to be discharged home today # Chronic pain, present on admission - c/w home meds # Hypertension, chronic, present on admission. stable by day of d/c abdomen soft, nt, nd, +bs Exam Vital Signs (Last) Date Time Temp Pulse Resp B/P Pulse Ox O2 Delivery O2 Flow Rate FiO2 08/02/16 14:16 36.6 83 18 124/80 97 Room Air Test 07/31/16 15:59 08/01/16 05:50 Lipase 59U/L (13-60) Hold Alexis Top Tube Received (Received) White Blood Count 4.5th/mm3 (3.8-10.1) Red Blood Count 4.11mil/mm3 (3.90-5.20) Hemoglobin 11.8g/dL (12.0-15.6) Hematocrit 33.9% (35.0-46.0) Mean Corpuscular Volume 82.5fL (81-100) Mean Corpuscular Hemoglobin 28.7pg (27.0-35.0) Mean Corpuscular Hemoglobin Concent 34.8% (32.0-37.0) Red Cell Distribution Width 11.7% (12.3-15.4) Platelet Count 250bil/L (150-400) Neutrophils (%) (Auto) 51.8% (40-74) Lymphocytes (%) (Auto) 35.3% (14-46) Monocytes (%) (Auto) 7.3% (4-12) Eosinophils (%) (Auto) 4.7% (0-5) Basophils (%) (Auto) 0.9% (0-3) Sodium Level 139mEq/L (134-144) Potassium Level 4.4mEq/L (3.5-5.2) Chloride Level 105mEq/L (97-108) Carbon Dioxide Level 21mmol/L (18-29) Blood Urea Nitrogen 7mg/dL (6-24) Creatinine 0.45mg/dL (0.57-1.00) Estimat Glomerular Filtration Rate 206mL/min (>59) Glucose Level 94mg/dL (60-99) Calcium Level 8.8mg/dL (8.5-10.1) Total Bilirubin 0.4mg/dL (0.0-1.2) Aspartate Amino Transf (AST/SGOT) 19U/L (0-50) Alanine Aminotransferase (ALT/SGPT) 9U/L (0-32) Alkaline Phosphatase 63U/L (25-150) Total Protein 6.1g/dL (6.4-8.4) Albumin 3.9g/dL (3.4-5.0) Discharge Medications Discharge Medications Gabapentin (Gabapentin) 300 Mg Capsule 900 MG PO TID (Reported) Lisinopril (Lisinopril) 10 Mg Tablet 10 MG PO DAILY (Reported) Morphine Sulfate ER (MS Contin) 30 Mg Tablet.er 30 MG PO BID Prescribed by: DENISSE HO MD As needed Ondansetron (Zofran) 4 Mg Tablet 4 MG PO Q8H PRN PRN For Nausea Prescribed by: SANTANA GUZMAN MD Polyethylene Glycol 3350 (Miralax) 17 Gm Powd.pack 17 GM PO DAILY PRN PRN For Constipation Prescribed by: HOUSTON JAIME MD Sennosides (Senna) 8.6 Mg Tablet 17.2 MG PO BID PRN PRN For Constipation Prescribed by: HOUSTON JAIME MD oxyCODONE (oxyCODONE) 10 Mg Tablet 10 MG PO Q4-6H PRN PRN For Pain Prescribed by: DENISSE HO MD Followup Plan Disposition: Home Follow-up plan 1. Followup with primary care provider in 7-10 days as needed 2. Followup with gastroenterology as previously planned Discharge Diet: Low fat, Low Sodium, Heart Healthy Discharge Activity: No restrictions Patient Instructions Seek immediate medical attention if any new or worsening signs or symptoms occur. Time spent 30 min Rubén Norman Aug 02, 2016 16:18
== END 2016-08-02 16:16 | disposition home or self-care (01) ==
LOC: SED 15:00 → MPC 20:38
PROVIDERS: ADMIT Specialist; ATTEND Specialist
DX: R11.2 Nausea with vomiting, unspecified (principal); G89.29 Other chronic pain; M54.5 Low back pain; Z79.891 Long term (current) use of opiate analgesic; I10 Essential (primary) hypertension
CPT/HCPCS: 36415; 80053; 83690; 85025; 96372; 96374; 96376; 99285; G0378; J1170; J2550; J2765; J7030; J7040; J7042

== ENCOUNTER 2016-08-04 05:10 | Observation (INO) | payer MEDICARE, MEDICAID ==
[2016-08-04] VITALS (7 sets, daily range): BP systolic 136–188; BP diastolic 90–100; PULSE 85–108; RESP 15–23; O2SAT 94–98
[~2016-08-04] VITALS: Ht 167.6 cm; Wt 69.0 kg
--- NOTE | 2016-08-04 05:11 | ED.REPORT ---
HPI-NVD Date of Service Aug 04, 2016 ED Provider: Viet Buenrostro MD Patient is a 56 year old female with a history of peripheral neuropathy with chronic pain, hypertension, and frequent hospital admissions for intractable nausea and vomiting presents to the ED via EMS complaining of nausea and vomiting that began last night. Patient reports associated fever and chills, with crampy abdominal pain. She denies diarrhea or constipation. The patient also reports having nerve pain in her legs related to scoliosis and prior Hooper gloria surgery. Patient is on MS Contin 30mg and Oxycodone 10mg for her chronic pain. She is not out of her pain medication but states that she has been unable to keep her pain medication down due to her frequent vomiting. She reports decreased PO intake. The patient has previously had an appendectomy and C-sections, but denies prior cholecystectomy. The patient denies marijuana use. She only drinks alcohol during the holidays. This is the patient's 6th visit since June 10 for intractable nausea and vomiting. Each of the prior hospital admissions has resulted in hospital admission, with no etiology found to explain her GI complaints. Patient has an appointment with GI at the end of the month. Nursing Notes Stated Complaint: NAUSEA, VOMITING Nursing Notes Reviewed: Yes Allergies: Coded Allergies: Sulfa (Sulfonamide Antibiotics) (Verified Allergy, Intermediate, 07/31/16) Scheduled Gabapentin (Gabapentin) 300 Mg Capsule 900 MG PO TID Lisinopril (Lisinopril) 10 Mg Tablet 10 MG PO DAILY Morphine Sulfate ER (MS Contin) 30 Mg Tablet.er 30 MG PO BID Scheduled PRN Ondansetron (Zofran) 4 Mg Tablet 4 MG PO Q8H PRN PRN For Nausea Polyethylene Glycol 3350 (Miralax) 17 Gm Powd.pack 17 GM PO DAILY PRN PRN For Constipation Sennosides (Senna) 8.6 Mg Tablet 17.2 MG PO BID PRN PRN For Constipation oxyCODONE (oxyCODONE) 10 Mg Tablet 10 MG PO Q4-6H PRN PRN For Pain General Time Seen by MD: 05:11 Chief Complaint Nausea, Vomiting Hx Obtained From: Patient Arrived By: Ambulance Onset Occurred: Yesterday Symptom Duration: Waxes and wanes Location: : Diffuse Quality: Cramping Recent Healthcare: Recent doctor visit, Recent hospitalization Similar Sx Previous: Yes Past Medical History Past Medical History Notes: -- [facility] PCP Chronic Pain: MS Contin 30 BID, Oxycodone 10mg 4x/d, and Gabapentin per note 06/10/16 Patient admitted 5x since June 10 for intractable nausea & vomiting, no etiology found on work-up. Past Medical History Scoliosis. Back pain Hypertension. Peripheral neuropathy following Hooper gloria surgery. Past Surgical History 6x Back surgeries including: Spinal cord stimulator implant. Hooper gloria placement and replacement. Debridement of ulcer on her left foot. Vertebral fracture repair July 2014. Multiple epidurals for back pain relief. 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 Ambulatory at baseline with braces. lives by self Ambulatory Status Cane Review of Systems Review of Systems Note: + decreased PO intake Constitutional: Reports: Chills, Fever GI: Reports: Abdominal pain, Bloody/tarry stool, Nausea, Vomiting, Denies: Constipation, Diarrhea Complete sys rev & neg: except as marked. Physical Exam Initial Vital Signs Vital Signs (First) Date Time Temp Pulse Resp B/P Pulse Ox O2 Delivery O2 Flow Rate FiO2 08/04/16 05:13 36.7 108 18 188/96 97 Room Air Initial VS: Reviewed Head / Eyes: Atraumatic, Normocephalic, PERRL ENT: Conjunctiva normal, No scleral icterus Neck: Supple, Full range of motion Respiratory: Breath sounds normal, Clear to auscultation, No respiratory distress Extremities: Vascular intact, Neuro intact Skin: Warm, Dry, No cyanosis Neurologic: Alert, Oriented, Nonfocal Psychiatric: Mood/affect normal, Behavior normal General/Constitutional: Awake, Alert Distress / Hydration: Positive: Distress moderate Abdomen: Soft, No guarding, No rebound Tenderness/Guarding/Rebound: Positive: Tender diffuse ENT: Airway patent Mouth: Positive: Mucous membranes dry Cardiovascular: Regular rhythm, Heart sounds NL Heart Rate / Rhythm: Positive: Tachycardia Interpretation & Diagnostics Lab Results Interpretation Result Diagram: 08/04/16 0520 08/04/16 0520 Test 08/04/16 05:20 White Blood Count 6.8th/mm3 (3.8-10.1) Red Blood Count 4.78mil/mm3 (3.90-5.20) Hemoglobin 13.7g/dL (12.0-15.6) Hematocrit 38.6% (35.0-46.0) Mean Corpuscular Volume 80.8fL (81-100) Mean Corpuscular Hemoglobin 28.7pg (27.0-35.0) Mean Corpuscular Hemoglobin Concent 35.5% (32.0-37.0) Red Cell Distribution Width 11.8% (12.3-15.4) Platelet Count 308bil/L (150-400) Neutrophils (%) (Auto) 70.2% (40-74) Lymphocytes (%) (Auto) 20.5% (14-46) Monocytes (%) (Auto) 6.6% (4-12) Eosinophils (%) (Auto) 2.0% (0-5) Basophils (%) (Auto) 0.4% (0-3) Sodium Level 137mEq/L (134-144) Potassium Level 4.1mEq/L (3.5-5.2) Chloride Level 101mEq/L (97-108) Carbon Dioxide Level 21mmol/L (18-29) Blood Urea Nitrogen 8mg/dL (6-24) Creatinine 0.46mg/dL (0.57-1.00) Estimat Glomerular Filtration Rate 201mL/min (>59) Glucose Level 117mg/dL (60-99) Calcium Level 9.3mg/dL (8.5-10.1) Magnesium Level 2.1mg/dL (1.6-2.6) Total Bilirubin 0.3mg/dL (0.0-1.2) Aspartate Amino Transf (AST/SGOT) 20U/L (0-50) Alanine Aminotransferase (ALT/SGPT) 12U/L (0-32) Alkaline Phosphatase 80U/L (25-150) Total Protein 7.5g/dL (6.4-8.4) Albumin 4.6g/dL (3.4-5.0) Lipase 60U/L (13-60) Hold Alexis Top Tube Received (Received) Re-Eval/Medical Decision Med Decision/Clinical Course 56-year-old with recurrent intractable nausea and vomiting presents now with nausea and vomiting and inability keep her pain medicine down. IV was started and she was hydrated and labs are drawn. Her care is being turned over change of shift to Dr. Gutierrez. Source of Hx: Old records Discharge & Departure Shift Change Sign-Out Patient Care Transferred: Yes Discussed Complaint(s): Yes Laboratory Evaluation: Ordered, not yet done Impression: Primary Impression: Nausea & vomiting Vomiting type: unspecified Vomiting Intractability: unspecified Qualified Code: R11.2 - Nausea with vomiting, unspecified Referrals: OTHER,PHYSICIAN (PCP) Care Transferred to: Dr. Gutierrez Care Transferred at: 06:00 Scribe Attestation Portions of this note were transcribed by Renetta Lares. I, Dr. Buenrostro personally performed the history, physical exam and medical decision-making; I reviewed and confirmed the accuracy of the information in the transcribed note. Signed by: Kel De Souza, 08/04/2016 0610 copies to: OTHER,PHYSICIAN Viet Buenrostro MD Aug 04, 2016 05:11 Renetta Lares Aug 04, 2016 05:37
[2016-08-04] MEDS ORDERED: 0.9% Sodium Chloride 1,000 ML IV ONE ×2 (05:16→07:20)
[2016-08-04] MEDS: HYDROmorphone 1 mg/mL Inj IVPUSH PRN ×2 (05:23→06:21)
[2016-08-04] MEDS: Ondansetron 2 mg/mL 2 mL Inj IVPUSH PRN ×2 (05:24→05:56)
[2016-08-04 05:35] LABS: BASOPHILS % (AUTO) 0.4 % (0-3); MONOCYTES % (AUTO) 6.6 % (4-12); Mean Corpuscular Hemoglobin 28.7 pg (27.0-35.0); Mean Corpuscular Volume 80.8 fL (81-100); NEUTROPHILS % (AUTO) 70.2 % (40-74); Platelet Count 308 bil/L (150-400)
[2016-08-04 05:58] LABS: Magnesium 2.1 mg/dL (1.6-2.6)
[2016-08-04] MEDS ORDERED: Promethazine Inj 12.5 MG in Dextrose 5%-Pha MIX 50 ML IV ONE (06:20)
[2016-08-04] MEDS ORDERED: MetoCLOpramide 5 mg/mL 2 mL Inj IVPUSH ONE (07:20)
[2016-08-04] MEDS ORDERED: Morphine ER 30 mg (MS Contin) Tablet PO ONE (09:00)
[2016-08-04] MEDS ORDERED: PROM12.510 PO (09:47)
[2016-08-04] MEDS ORDERED: ONDA4TAB9 PO (09:47)
[2016-08-04] MEDS ORDERED: DIPH25CA6 PO (09:47)
[2016-08-04] MEDS ORDERED: Polyethylene Glycol (PEG) 17 Gm Powder PO PRN ×2 (11:15→11:25)
[2016-08-04] MEDS ORDERED: Promethazine 25 mg/mL Inj IM PRN (11:15)
[2016-08-04] MEDS ORDERED: Ondansetron 2 mg/mL 2 mL Inj IVPUSH PRN (11:15)
[2016-08-04] MEDS ORDERED: Alum-Mag Hydrox-Simeth 30 mL Suspension PO PRN (11:15)
[2016-08-04] MEDS ORDERED: diphenhydrAMINE 25 mg Capsule PO PRN (11:25)
[2016-08-04] MEDS ORDERED: _Ondansetron ODT 4 mg Tablet PO PRN (11:25)
[2016-08-04] MEDS: D5 0.45% NaCl + KCl 20 mEq/L 1,000 ML IV SCH ×2 (11:56→23:18)
[2016-08-04] MEDS: Heparin 5,000 Unit/mL Inj SUBQ SCH ×2 (12:05→16:15)
[2016-08-04] MEDS ORDERED: PROM50SU5 RECTAL (12:25)
--- NOTE | 2016-08-04 14:15 | NUR ---
ADMIT TO [facility] Patient arrived to room 1003 on ER [facility], was able to stand and transfer to hospital bed independently. C/o nausea, no emesis since in ED. IV fluids initiated. Oriented to room and advised of NPO status. Admission complete by admissions nurse. C/o 7/10 pain in bilateral legs. Administered oral zofran and oxy 10mg along with scheduled medications. Patient has been able to keep them down. Will continue to monitor.
[2016-08-04] MEDS: Morphine ER 30 mg (MS Contin) Tablet PO SCH (20:39)
--- NOTE | 2016-08-04 21:44 | PCM.HPMED ---
Subjective Date of Service Aug 04, 2016 Primary Provider: Admitting Physician: Khoa Silva MD Primary Care Physician: Other,Physician Attending Physician: Khoa Silva MD Admit Status: From the Emergency Department, 23-Hour Observation, Admit to [place] Team Chief Complaint: Intractable nausea and vomiting History of Present Illness: Patient is a 56 year old female with a history of peripheral neuropathy with chronic pain, hypertension, and frequent hospital admissions for intractable nausea and vomiting presents to the ED via EMS complaining of nausea and vomiting that began last night. Patient reports associated fever and chills, with crampy abdominal pain. She denies diarrhea or constipation. The patient also reports having nerve pain in her legs related to scoliosis and prior Hooper gloria surgery. Patient is on MS Contin 30mg and Oxycodone 10mg for her chronic pain. She is not out of her pain medication but states that she has been unable to keep her pain medication down due to her frequent vomiting. She reports decreased PO intake. The patient has previously had an appendectomy and C-sections, but denies prior cholecystectomy. The patient denies marijuana use. She only drinks alcohol during the holidays. This is the patient's 6th visit since June 10 for intractable nausea and vomiting. Each of the prior hospital admissions has resulted in hospital admission, with no etiology found to explain her GI complaints. Patient has an appointment with GI physician from [facility] at the end of the month. Patient was initially seen by Dr. Viet Buenrostro and she was given Zofran 4 mg 2 and Phenergan 12.5 mg 1 and Benadryl 25 mg 1 in the emergency room. Discharge planning was begun however patient continued to have nausea and vomiting therefore patient was brought in to the hospital under the hospitalist service for observation. Review of Systems: General: The patient is lying in bed with her left lower sternal reflux at the knee and hip with her knee up against her chest and she is rubbing her leg. Otherwise patient appears to be in no distress. HEENT: Patient has no headache, patient has no diplopia, patient has no changes in vision. Patient has no problems with their ears, nose or throat. Patient has no known dental problems. Patient has no pharyngitis or history of thrush. Neck: Patient's neck has been affected by her scoliosis and is "pushed forward" . Patient has no lymphadenopathy. Patient has no other problems with their neck. Pulmonary: Patient has no shortness of breath, no cough, no expectoration of sputum. Patient has no pleurisy. Patient has no chest pain. Patient has no history of asthma or COPD. Cardiovascular: Patient has no chest pain. Patient has no history of heart murmur. Patient has no palpitations. Patient has no history of myocardial infarction. Patient has no history of coronary artery disease. Gastrointestinal: Patient has no history of hepatitis A, B or C. Patient has no history of peptic ulcer disease. Patient has no history of gastroesophageal reflux disease. Patient has a history of nausea and vomiting with 6 visits to the emergency room since 06/10/2016 to the present. Patient has no recent diarrhea. Patient has no history of hematemesis, hematochezia, or melena. Patient has no history of colitis. Renal: Patient has no history of kidney disease. No history of kidney stones. Genitourinary: Patient has no history of dysuria, frequency, or incontinence. Patient has no previous history of genitourinary problems. Musculoskeletal: Patient has no history of muscular skeletal problems. Neurologic: Patient has no history of stroke, no history of seizure, no history of TIA. The patient has weakness of both lower extremities right greater than left. She has decreased sensation of her right lower extremity. Her left lower extremity is larger than her right lower extremity. She complains of painful neuropathy of both lower extremities left greater than right. Psychiatric: Patient denies any history of psychiatric problems. The remainder of the entire review of systems was reviewed with patient and is as mentioned above otherwise negative. Allergies Coded Allergies: Sulfa (Sulfonamide Antibiotics) (Verified Allergy, Intermediate, 08/04/16) Home Medications Scheduled Gabapentin (Gabapentin) 300 Mg Capsule 900 MG PO TID Lisinopril (Lisinopril) 10 Mg Tablet 10 MG PO DAILY Morphine Sulfate ER (MS Contin) 30 Mg Tablet.er 30 MG PO BID Scheduled PRN Ondansetron (Zofran) 4 Mg Tablet 4 MG PO Q8H PRN PRN For Nausea Polyethylene Glycol 3350 (Miralax) 17 Gm Powd.pack 17 GM PO DAILY PRN PRN For Constipation Sennosides (Senna) 8.6 Mg Tablet 17.2 MG PO BID PRN PRN For Constipation oxyCODONE (oxyCODONE) 10 Mg Tablet 10 MG PO Q4-6H PRN PRN For [facility] PM[facility] -- Dr. Colby at [facility] is PCP Chronic Pain: MS Contin 30 BID, Oxycodone 10mg 4x/d, and Gabapentin per note 06/10/16 Patient admitted 5x since June 10 for intractable nausea & vomiting, no etiology found on work-up. Scoliosis. Back pain Hypertension. Peripheral neuropathy following Hooper gloria surgery. Surgical History 6x Back surgeries including: Spinal cord stimulator implant 2. One implant was for her back and one was for her legs. Hooper gloria placement in 1978 in [facility]. Patient then had redo Hooper gloria placement by Dr. Pham at [facility] in 1986. The surgery 1986 resulted in complications which she claims are the cause all of her current neurological problems. The patient then had replacement. Over Hooper rods in a redo surgery in [address] [facility] in [place]. Debridement of ulcer on her left foot. Vertebral fracture repair July 2014. Multiple epidurals for back pain relief. Appendectomy years ago. [place] teeth removal 4 3 Patient is also had a right total knee arthroplasty by Dr. Darnell recently Family History Patient's mother at 47 of unknown causes. An autopsy was performed and failed to reveal the cause of her . Patient's father is still alive at 83. He is a colon cancer survivor of colon cancer is believed to be in remission after treatment. The patient's father has a history of scoliosis as a young man but his spine was able to "straighten out". Social History Hx Alcohol Use: Yes (occasional) Hx Substance Use: Yes (Patient uses edible marijuana. However, she does not smoke it. She denies use of any other illicit substances.) Hx Tobacco Use: No Smoking Status: Never Smoker Living Arrangement: Alone (The patient's 2 daughters live with her during the summertime and for a month at [place] time. Her son just returned from duty and lives in the area.) Additional Information Patient was born in [facility]. She went to [employer] high school. Patient graduated and went to [employer] and then the [employer]. She got a master's of education at [employer] in [place], [place]. 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 Patient has never smoked tobacco she experimented with smoking marijuana in college and now uses edible marijuana and has been using it for the last year or more. Patient denies any other drug use other than prescription medications for her back pain and leg pain. She will occasionally have an alcohol beverage at a holiday but has never had any drinking problems. Patient was for 16 years until her devastating second surgery in 1996. Her she met in [place] could not handle the fact that she was now in a wheelchair and left ear. She has 3 children who are now ages 3 and 25 she is 4 para 3 and 1. Her daughters are in [place] at present time one is studying theater and the other with the [employer] for a year and is now living for a year with her sister Casey Talley. Her son recently got out of the and is just recently gotten apartment on the [facility]. Exam Vital Signs Vital Sign - Last Date Time Temp Pulse Resp B/P Pulse Ox O2 Delivery O2 Flow Rate FiO2 08/04/16 16:53 36.9 88 18 145/93 97 Room Air Exam General: Patient is in minimal distress. However, she has her left lower extremity flexed fully at the hip and knee and is holding her leg with her left knee up against her chest and rubbing her leg. She appears quite comfortable doing this and states that it helps her feel better. HEENT: Head is atraumatic and normocephalic. Eyes: Pupils are equally round and reactive to light and accommodation. Extraocular muscles are intact. Sclera are white, anicteric. Subconjunctival mucosa is pink. Ears and nose are unremarkable. Oropharynx: There is no mucosal lesions, there is no thrush, there is no pharyngitis. Neck: Is supple, there are no nodes, or masses or tenderness. Chest: Is clear to auscultation and percussion. There are no rales, rhonchi, wheezes or rubs. Heart: Rate, rhythm is regular. There is no murmur, rub or gallop. Abdomen: Good bowel sounds are present. Abdomen is soft, nontender, no organomegaly or masses were appreciated. Extremities: The left lower extremity is larger than the right lower extremity however both are well perfused. There is no edema, there is no cellulitis, no rash. Neurologic: There is weakness of the right lower extremity greater than the left. Rectal the left lower extremity is roughly 3 over 5 right lower extremity is approximately 1-2 over 5 Cranial nerves II through XII are intact. There decreased sensation of the right lower extremity. Psychiatric: Patients mood is calm and shows no sign of agitation. Genital: Deferred Rectal: Deferred Lab and Diagnostics Result Diagram: 08/04/1651908/04/16519 X-Rays, CTs and MRIs Last abdominal x-ray is from 2015 Assessment & Plan Patient is a 56 year old female with a history of peripheral neuropathy with chronic pain, hypertension, and frequent hospital admissions for intractable nausea and vomiting presents to the ED via EMS complaining of nausea and vomiting that began last night. Patient reports associated fever and chills, with crampy abdominal pain. She denies diarrhea or constipation. The patient also reports having nerve pain in her legs related to scoliosis and prior Hooper gloria surgery. Patient is on MS Contin 30mg and Oxycodone 10mg for her chronic pain. She is not out of her pain medication but states that she has been unable to keep her pain medication down due to her frequent vomiting. She reports decreased PO intake. The patient has previously had an appendectomy and C-sections, but denies prior cholecystectomy. The patient denies marijuana use. She only drinks alcohol during the holidays. This is the patient's 6th visit since June 10 for intractable nausea and vomiting. Each of the prior hospital admissions has resulted in hospital admission, with no etiology found to explain her GI complaints. Patient has an appointment with GI physician from [facility] at the end of the month. Patient was initially seen by Dr. Viet Buenrostro and she was given Zofran 4 mg 2 and Phenergan 12.5 mg 1 and Benadryl 25 mg 1 in the emergency room. Discharge planning was begun however patient continued to have nausea and vomiting therefore patient was brought in to the hospital under the hospitalist service for observation. # Cyclic vomiting and abdominal pain - I suspect the primary cause may be the use of edible marijuana causing cannabinoid cyclic emesis syndrome versus malingering - Anti-emetics to be used as needed with Zofran and Phenergan when necessary. - Proton pump inhibitor - Bowel rest; advance diet to clear liquids as tolerated - Maintenance IV fluids - Repeat BMP in a.m. 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 One of these back surgeries in 1996 causing significant neurological damage and peripheral neuropathy. - Parenteral opioids as needed while unable to take by mouth pain medications - Return to her baseline oral medications when taking by mouth # Hypertension - Continue lisinopril Pain Evaluation: Adequate Pain Control GI Prophylaxis: Proton Pump Inhibitor VTE Prophylaxis: Sub-Q Heparin (Unfractionated) Resuscitation Status: CPR: Attempt Resuscitation SomersetKhoa MD Aug 04, 2016 21:44
--- NOTE | 2016-08-04 22:31 | NUR ---
paged/ High diastolic BP Concerned about high diastolic BPs in the 90s-100s. Pt. was lying in bed. BP taken twice. Second BP taken after pain med given, and diastolic was still in the 90s. Kameron MARTINEZ paged. No new orders at this time. Will continue to monitor.
[2016-08-05 00:33] VITALS: BP 144/73; PULSE 87; RESP 20; O2SAT 95
[2016-08-05] MEDS: Heparin 5,000 Unit/mL Inj SUBQ SCH ×3 (00:46→16:19)
[2016-08-05 05:17] VITALS: BP 127/82; PULSE 82; RESP 20; O2SAT 97
[2016-08-05 05:53] LABS: EOSINOPHILS % (AUTO) 5.1 % (0-5); MONOCYTES % (AUTO) 7.6 % (4-12); Mean Corpuscular Hemoglobin 28.5 pg (27.0-35.0); Mean Corpuscular Volume 83.3 fL (81-100); NEUTROPHILS % (AUTO) 49.7 % (40-74); Platelet Count 286 bil/L (150-400)
[2016-08-05 06:05] LABS: Magnesium 2.1 mg/dL (1.6-2.6)
--- NOTE | 2016-08-05 06:51 | NUR ---
Update on pt's status Pt. has complained of nausea during shift. No emesis produced. Pt. reports continual pain 7/10 in legs. Zofran, MS Contin, and Stacey given for nausea and pain. Will continue to monitor.
[2016-08-05] MEDS: Pantoprazole 40 mg ER24 Tablet PO SCH (07:24)
[2016-08-05] MEDS: Morphine ER 30 mg (MS Contin) Tablet PO SCH ×2 (08:35→20:52)
[2016-08-05] MEDS: D5 0.45% NaCl + KCl 20 mEq/L 1,000 ML IV SCH (12:33)
[2016-08-05 14:50] VITALS: BP 114/68; PULSE 80; RESP 17; O2SAT 97
--- NOTE | 2016-08-05 15:39 | NUR ---
YUMI explained, signed, copy of YUMI and Medicare self administered drug info provided.
--- NOTE | 2016-08-05 15:52 | NUR ---
NAUSEA Patient continued to need PO zofran administered throughout the day for nausea. Diet was upgraded from CL to general diet for lunch per patient request. Patient reported episode of emesis after lunch, patient stated she flushed toilet prior to notifying staff. Administered PO and IV zofran for relief. Medications were effective per patient report and requested pain medication shortly after for pain in bilateral LE.
--- NOTE | 2016-08-05 16:02 | NUR ---
Social Work: Initial Assessment Data: See Initial Assessment. Pt is a 56 year old female admitted on 08/04/16 for intractable nausea and vomiting per H&P. Pt's insurance is Medicare and [facility] Supp. PCP is [facility]. EMR reviewed. Pt is a readmission discharging home with no needs. SW met with pt at bedside to discuss discharge planning, SW role explained. Pt resides at home alone in [place] where she remains independent with her ADLs. Pt uses a cane occasionally and drives. Pt has experience with [employer], but cannot recall the specific company. Pt has no SNF history. 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 SW discussed DPOA/AD and encouraged the pt to bring a copy into the hospital. Pts son to provide transport home at discharge. Social Work provided number and plan on whiteboard. Patient is agreeable to this plan. SW will continue to follow should needs arise. Assessment: Pt who is independent at baseline. Plan: Pt to discharge home with son via POV. No anticipated discharge needs. SW will continue to follow should needs arise. FREDERIC Campo Addendum: 08/05/16 at 1621 by DONTA MAN SS Amended: Links added.
--- NOTE | 2016-08-05 17:48 | PCM.PNMED ---
Subjective Date of Service Aug 05, 2016 Subjective Patient is feeling a little bit better today and wants to try eating regular food before she goes home. She has no other new complaints. Exam Vital Signs Vital Sign - Last Date Time Temp Pulse Resp B/P Pulse Ox O2 Delivery O2 Flow Rate FiO2 08/05/16 14:50 36.7 80 17 114/68 97 Room Air Intake and Output 08/04/16 08/04/16 08/05/16 Cumulative From/Thru 15:00 23:00 07:00 08/04/16 05:13 - 08/05/16 06:42 Intake Total 2000 ml 488 ml 2244 ml 4732 ml Output Total 1500 ml 1500 ml Balance 2000 ml 488 ml 744 ml 3232 ml Intake Oral 1400 ml 1400 ml IV Total 2000 ml 488 ml 844 ml 3332 ml Output Urine Total 1500 ml 1500 ml # Voids 5 5 # Bowel Movements 0 0 Exam General: Patient is in minimal distress. She appears more comfortable today. HEENT: Head is atraumatic and normocephalic. Eyes: Pupils are equally round and reactive to light and accommodation. Extraocular muscles are intact. Sclera are white, anicteric. Subconjunctival mucosa is pink. Ears and nose are unremarkable. Oropharynx: There is no mucosal lesions, there is no thrush, there is no pharyngitis. Neck: Is supple, there are no nodes, or masses or tenderness. Chest: Is clear to auscultation and percussion. There are no rales, rhonchi, wheezes or rubs. Heart: Rate, rhythm is regular. There is no murmur, rub or gallop. Abdomen: Good bowel sounds are present. Abdomen is soft, nontender, no organomegaly or masses were appreciated. Extremities: The left lower extremity is larger than the right lower extremity however both are well perfused. There is no edema, there is no cellulitis, no rash. Neurologic: There is weakness of the right lower extremity greater than the left. Rectal the left lower extremity is roughly 3 over 5 right lower extremity is approximately 1-2 over 5 Cranial nerves II through XII are intact. There decreased sensation of the right lower extremity. Psychiatric: Patients mood is calm and shows no sign of agitation. Genital: Deferred Rectal: Deferred Lab and Diagnostics Result Diagram: 08/05/16 0500 08/05/16 0500 X-Rays, CTs and MRIs Last abdominal x-ray is from 2015 Assessment & Plan Patient is a 56 year old female with a history of peripheral neuropathy with chronic pain, hypertension, and frequent hospital admissions for intractable nausea and vomiting presents to the ED via EMS complaining of nausea and vomiting that began last night. Patient reports associated fever and chills, with crampy abdominal pain. She denies diarrhea or constipation. The patient also reports having nerve pain in her legs related to scoliosis and prior Hooper gloria surgery. Patient is on MS Contin 30mg and Oxycodone 10mg for her chronic pain. She is not out of her pain medication but states that she has been unable to keep her pain medication down due to her frequent vomiting. She reports decreased PO intake. The patient has previously had an appendectomy and C-sections, but denies prior cholecystectomy. The patient denies marijuana use. She only drinks alcohol during the holidays. This is the patient's 6th visit since June 10 for intractable nausea and vomiting. Each of the prior hospital admissions has resulted in hospital admission, with no etiology found to explain her GI complaints. Patient has an appointment with GI physician from [facility] at the end of the month. Patient was initially seen by Dr. Viet Buenorstro and she was given Zofran 4 mg 2 and Phenergan 12.5 mg 1 and Benadryl 25 mg 1 in the emergency room. Discharge planning was begun however patient continued to have nausea and vomiting therefore patient was brought in to the hospital under the hospitalist service for observation. # Cyclic vomiting and abdominal pain improved - I suspect the primary cause may be the use of edible marijuana causing cannabinoid cyclic emesis syndrome versus malingering. Patient has not had any cannabinoids since being in the hospital and is beginning to feel better. She has gone home and has been readmitted 6 times since June 10. I suspect each time she is unit using cannabinoids at home and suspect that this is the cause of her emesis syndrome - Anti-emetics to be used as needed with Zofran and Phenergan when necessary. - We will continue Proton pump inhibitor - Bowel rest; advance diet to clear liquids as tolerated - Continue Maintenance IV fluids - Continue to check daily labs due to above.. 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 One of these back surgeries in 1996 causing significant neurological damage and peripheral neuropathy. - Parenteral opioids as needed while unable to take by mouth pain medications - Return to her baseline oral medications when taking by mouth # Hypertension - Continue lisinopril Disposition: If patient continues to improve we will likely discharge home tomorrow. Pain Evaluation: Adequate Pain Control GI Prophylaxis: Proton Pump Inhibitor VTE Prophylaxis: Sub-Q Heparin (Unfractionated) VTE Mechanical Devices: Intermittant Pneumatic CD Resuscitation Status: CPR: Attempt Resuscitation Khoa Silva MD Aug 05, 2016 17:48
[2016-08-05 20:04] VITALS: BP 107/67; PULSE 75; RESP 16; O2SAT 99
[2016-08-06] MEDS: Heparin 5,000 Unit/mL Inj SUBQ SCH ×2 (01:16→08:39)
[2016-08-06] MEDS: D5 0.45% NaCl + KCl 20 mEq/L 1,000 ML IV SCH ×2 (01:21→13:12)
--- NOTE | 2016-08-06 03:16 | NUR ---
Pain Pt. reports that pain is a steady 01/01. Pt. reports some relief with pain medications stating "it helps the pain from getting worse". Will continue to monitor.
[2016-08-06 04:57] VITALS: BP 108/69; PULSE 67; RESP 16; O2SAT 97
[2016-08-06 05:51] LABS: MONOCYTES % (AUTO) 9.4 % (4-12); Mean Corpuscular Hemoglobin 28.3 pg (27.0-35.0); Mean Corpuscular Volume 83.8 fL (81-100); NEUTROPHILS % (AUTO) 44.3 % (40-74); Platelet Count 232 bil/L (150-400)
[2016-08-06 08:07] LABS: Hepatitis A Antibody IgM Negative (Negative); Hepatitis B Core Antibody IgM Negative (Negative)
[2016-08-06] MEDS: Pantoprazole 40 mg ER24 Tablet PO SCH (08:38)
[2016-08-06] MEDS: Morphine ER 30 mg (MS Contin) Tablet PO SCH (08:39)
[2016-08-06 10:07] VITALS: BP 114/71; PULSE 76; RESP 15; O2SAT 98
--- NOTE | 2016-08-06 10:30 | PCM.DIMED ---
Discharge Instructions Date of Service Aug 06, 2016 Dates of Hospitalization Aug 04, 2016 at 10:35 Discharge Diagnosis Discharge Diagnosis Cyclic Vomiting Opioid Dependency Hypertension Diet No restrictions Activity No restrictions Patient Instructions Follow-up with PCP in: 1 week (Primary ) Follow-up in: 2 weeks (Gastroenterology ) Sukhdev Martinez MD Aug 06, 2016 10:30
[2016-08-06] MEDS ORDERED: PANT40TA3 PO (10:32)
--- NOTE | 2016-08-06 11:40 | NUR ---
Social Work: Discharge Data: EMR reviewed. Pt is on day 2 of hospitalization per intractable N/V per H&P. Pt is ready to discharge today. had discussion with pt regarding discontinuing marijuana use. Pt has appointment at for pain pump. Per nursing notes, pt has been up independent in room. Pt's family to provide transport home. No discharge needs identified. All updated and agreeable to plan. Assessment: Pt who is independent at baseline. Plan: Pt to discharge home today with family via POV. No anticipated discharge needs. All updated and agreeable to plan. Luba Damian, TECHNICAL MGR
--- NOTE | 2016-08-06 14:05 | NUR ---
Activity Pt has had no N/V/D during shift so far and able to eat all meals w/o complaint. Pain is well controlled on current PO medications. Pt able to be up and walking independently in room. YANA LORA, A&O x 3. Plan is for discharge later this PM when family can pick her up.
--- NOTE | 2016-08-06 15:22 | PCM.DC.MED ---
Discharge Summary Date of Service Aug 06, 2016 Dates of Hospitalization Date of Hospital Admission Aug 04, 2016 at 10:35 Date of Discharge: Aug 06, 2016 Providers: Admitting Physician: Khoa Silva MD Primary Care Physician: Other,Physician Attending Physician: Adam Haines MD Diagnosis at Time of Discharge Diagnosis at Time of Discharge Cyclic Vomiting Opioid Dependency Hypertension Consultations None Procedures XRay, CTs & MRIs Last abdominal x-ray is from 2015 Brief History Patient is a 56 year old female with a history of peripheral neuropathy with chronic pain, hypertension, and frequent hospital admissions for intractable nausea and vomiting presents to the ED via EMS complaining of nausea and vomiting that began last night. Patient reports associated fever and chills, with crampy abdominal pain. She denies diarrhea or constipation. The patient also reports having nerve pain in her legs related to scoliosis and prior Hooper gloria surgery. Patient is on MS Contin 30mg and Oxycodone 10mg for her chronic pain. She is not out of her pain medication but states that she has been unable to keep her pain medication down due to her frequent vomiting. She reports decreased PO intake. The patient has previously had an appendectomy and C-sections, but denies prior cholecystectomy. The patient denies marijuana use. She only drinks alcohol during the holidays. This is the patient's 6th visit since June 10 for intractable nausea and vomiting. Each of the prior hospital admissions has resulted in hospital admission, with no etiology found to explain her GI complaints. Patient has an appointment with GI physician from [facility] at the end of the month. Patient was initially seen by Dr. iVet Buenrostro and she was given Zofran 4 mg 2 and Phenergan 12.5 mg 1 and Benadryl 25 mg 1 in the emergency room. Discharge planning was begun however patient continued to have nausea and vomiting therefore patient was brought in to the hospital under the hospitalist service for observation. Hospital Course Patient is a 56 year old female with a history of peripheral neuropathy with chronic pain, hypertension, and frequent hospital admissions for intractable nausea and vomiting presents to the ED via EMS complaining of nausea and vomiting that began last night. Patient reports associated fever and chills, with crampy abdominal pain. She denies diarrhea or constipation. The patient also reports having nerve pain in her legs related to scoliosis and prior Hooper gloria surgery. Patient is on MS Contin 30mg and Oxycodone 10mg for her chronic pain. She is not out of her pain medication but states that she has been unable to keep her pain medication down due to her frequent vomiting. She reports decreased PO intake. The patient has previously had an appendectomy and C-sections, but denies prior cholecystectomy. The patient denies marijuana use. She only drinks alcohol during the holidays. This is the patient's 6th visit since June 10 for intractable nausea and vomiting. Each of the prior hospital admissions has resulted in hospital admission, with no etiology found to explain her GI complaints. Patient has an appointment with GI physician from [facility] at the end of the month. Patient was initially seen by Dr. Viet Buenrostro and she was given Zofran 4 mg 2 and Phenergan 12.5 mg 1 and Benadryl 25 mg 1 in the emergency room. Discharge planning was begun however patient continued to have nausea and vomiting therefore patient was brought in to the hospital under the hospitalist service for observation. # Cyclic vomiting and abdominal pain: improved Primary cause may be the use of edible marijuana causing cannabinoid cyclic emesis syndrome versus malingering. Patient has not had any cannabinoids since being in the hospital and is beginning to feel better. - She opposed with antiemetics, PPI. Patient able to tolerate regular food in the past 24 hours prior to discharge. . 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 One of these back surgeries in 1996 causing significant neurological damage and peripheral neuropathy. She is on MS Contin and oxycodone at home. Additionally she is marijuana # Hypertension control on lisinopril Patient is discharged home in stable condition. She will follow-up as outpatient with gastroenterology R [facility] for cyclic vomiting Exam Vital Signs (Last) Date Time Temp Pulse Resp B/P Pulse Ox O2 Delivery O2 Flow Rate FiO2 08/06/16 10:07 36.8 76 15 114/71 98 Room Air Exam Neck: Supple no JVD Chest respiratory effort Lung: Clear bilaterally without wheezing Heart: S1-S2 regular with no murmur Abdomen : soft, nontender , nondistended, normal bowel sounds all quadrants Extremity: No edema no cyanosis Test 08/04/16 05:20 08/04/16 08:59 08/05/16 05:00 08/06/16 05:10 Lipase 60U/L (13-60) Hold Alexis Top Tube Received (Received) Hold Urine Received (Received) Magnesium Level 2.1mg/dL (1.6-2.6) Hepatitis A IgM Antibody Negative (Negative) Hepatitis B Surface Antigen Negative (Negative) Hepatitis B Core IgM Antibody Negative (Negative) Hepatitis C Antibody <0.1s/co ratio (0.0-0.9) Hepatitis C Comment Comment (.) White Blood Count 4.2th/mm3 (3.8-10.1) Red Blood Count 3.89mil/mm3 (3.90-5.20) Hemoglobin 11.0g/dL (12.0-15.6) Hematocrit 32.6% (35.0-46.0) Mean Corpuscular Volume 83.8fL (81-100) Mean Corpuscular Hemoglobin 28.3pg (27.0-35.0) Mean Corpuscular Hemoglobin Concent 33.7% (32.0-37.0) Red Cell Distribution Width 12.1% (12.3-15.4) Platelet Count 232bil/L (150-400) Neutrophils (%) (Auto) 44.3% (40-74) Lymphocytes (%) (Auto) 38.1% (14-46) Monocytes (%) (Auto) 9.4% (4-12) Eosinophils (%) (Auto) 7.0% (0-5) Basophils (%) (Auto) 1.0% (0-3) Sodium Level 133mEq/L (134-144) Potassium Level 4.4mEq/L (3.5-5.2) Chloride Level 99mEq/L (97-108) Carbon Dioxide Level 23mmol/L (18-29) Blood Urea Nitrogen 9mg/dL (6-24) Creatinine 0.51mg/dL (0.57-1.00) Estimat Glomerular Filtration Rate 178mL/min (>59) Glucose Level 96mg/dL (60-99) Calcium Level 8.3mg/dL (8.5-10.1) Total Bilirubin 0.3mg/dL (0.0-1.2) Aspartate Amino Transf (AST/SGOT) 16U/L (0-50) Alanine Aminotransferase (ALT/SGPT) 9U/L (0-32) Alkaline Phosphatase 57U/L (25-150) Total Protein 5.7g/dL (6.4-8.4) Albumin 3.6g/dL (3.4-5.0) Discharge Medications Discharge Medications Gabapentin (Gabapentin) 300 Mg Capsule 900 MG PO TID (Reported) Lisinopril (Lisinopril) 10 Mg Tablet 10 MG PO DAILY (Reported) Morphine Sulfate ER (MS Contin) 30 Mg Tablet.er 30 MG PO BID Prescribed by: DENISSE HO MD Pantoprazole DR (Pantoprazole DR) 40 Mg Tablet.dr 40 MG PO DAILYAC Prescribed by: DARYL MARTINEZ MD As needed Ondansetron ODT (Zofran ODT) 4 Mg Tablet 4 MG PO Q4H PRN PRN For Nausea Prescribed by: DALIA ROMAN DO Polyethylene Glycol 3350 (Miralax) 17 Gm Powd.pack 17 GM PO DAILY PRN PRN For Constipation Prescribed by: HOUSTON JAIME MD Promethazine HCl (Promethegan) 50 Mg Supp.rect 50 MG RECTAL Q8H PRN PRN For Nausea (Reported) Sennosides (Senna) 8.6 Mg Tablet 17.2 MG PO BID PRN PRN For Constipation Prescribed by: HOUSTON JAIME MD oxyCODONE (oxyCODONE) 10 Mg Tablet 10 MG PO Q4-6H PRN PRN For Pain Prescribed by: DENISSE HO MD Followup Plan Disposition: Patient is a discharged in stable condition Discharge Diet: No restrictions Discharge Activity: No restrictions Follow-up with PCP in: 1 week (Primary ) Follow-up in: 2 weeks (Gastroenterology ) Time spent 25 minutes Daryl Martinez MD Aug 06, 2016 15:22
--- NOTE | 2016-08-06 16:09 | NUR ---
Discharge Pt discharged at 1505 to private vehicle with son. Pt has discharge instructions and care notes, no new rx's. VSS, MILLAN, A&O x3. IV removed intact. Pt premedicated prior to discharge. Pt has all belongings.
== END 2016-08-06 15:10 | disposition home or self-care (01) ==
LOC: SED 05:10 → OSC 10:35
PROVIDERS: ADMIT Internal Medicine Infectious Disease; ATTEND Internal Medicine Infectious Disease
DX: G43.A0 Cyclical vomiting, in migraine, not intractable (principal); R10.9 Unspecified abdominal pain; Z79.891 Long term (current) use of opiate analgesic; G89.4 Chronic pain syndrome; I10 Essential (primary) hypertension; G62.9 Polyneuropathy, unspecified; F12.90 Cannabis use, unspecified, uncomplicated
CPT/HCPCS: 36415; 80053; 83690; 83735; 85025; 86705; 86709; 87340; 87341; 90791; 96361; 96372; 96374; 96375; 96376; 99285; G0378; G0472; J1170; J1200; J1644; J2270; J2405; J2550; J2765; J7030

== ENCOUNTER 2016-09-22 20:58 | Emergency (ER) | payer MEDICARE, MEDICAID ==
[~2016-09-22] VITALS: Ht 167.6 cm; Wt 68.2 kg
[~2016-09-22 20:58] MED LIST changes: -ONDA4TAB6 PO; +ONDA4TAB9 PO; +PANT40TA3 PO; +PROM50SU5 RECTAL
[2016-09-22 21:08] VITALS: BP 149/88; PULSE 93; RESP 22; O2SAT 98
--- NOTE | 2016-09-22 21:32 | ED.REPORT ---
HPI-General Illness Date of Service Sep 22, 2016 ED Provider: Khoa Concepcion MD 56 year old female with apparent cyclic vomiting, presents to the ER complaining of nausea and vomiting onset yesterday. Symptoms have prevented her from keeping her pain medications down for her chronic back pain. Associated symptom of single episode of diarrhea. Patient denies fever, chills, cough, hematemesis, bloody stool, and melena. Nursing Notes Stated Complaint: BACK PAIN, VOMITING Chief Complaint: Female Abdominal Pain Nursing Notes Reviewed: Yes Allergies: Coded Allergies: Sulfa (Sulfonamide Antibiotics) (Verified Allergy, Intermediate, 09/22/16) Scheduled Gabapentin (Gabapentin) 300 Mg Capsule 900 MG PO TID Lisinopril (Lisinopril) 10 Mg Tablet 10 MG PO DAILY Morphine Sulfate ER (MS Contin) 30 Mg Tablet.er 30 MG PO BID Pantoprazole DR (Pantoprazole DR) 40 Mg Tablet.dr 40 MG PO DAILYAC Scheduled PRN Ondansetron ODT (Zofran ODT) 4 Mg Tablet 4 MG PO Q4H PRN PRN For Nausea Ondansetron ODT (Ondansetron ODT) 8 Mg Tab.rapdis 8 MG PO QID PRN PRN For Nausea Polyethylene Glycol 3350 (Miralax) 17 Gm Powd.pack 17 GM PO DAILY PRN PRN For Constipation Promethazine HCl (Promethegan) 50 Mg Supp.rect 50 MG RECTAL Q8H PRN PRN For Nausea Promethazine Supp (Promethazine Supp) 50 Mg Supp 50 MG RECTAL Q8H PRN PRN For Nausea Sennosides (Senna) 8.6 Mg Tablet 17.2 MG PO BID PRN PRN For Constipation oxyCODONE (oxyCODONE) 10 Mg Tablet 10 MG PO Q4-6H PRN PRN For Pain General Time Seen by MD: 21:32 Chief Complaint Vomiting Hx Obtained From: Patient Arrived By: Walk-in Sudden in Onset?: No Onset Occurred: Yesterday Symptom Duration: Since onset Associated with: Reports: Abdominal pain, Denies: Cough, Fever Similar Sx Previous: Yes Past Medical History Past Medical History Notes: -- [facility]. [facility] PCP Chronic Pain: MS Contin 30 BID, Oxycodone 10mg 4x/d, and Gabapentin per note 06/10/16 Patient admitted 5x since June 10 for intractable nausea & vomiting, no etiology found on work-up. Past Medical History Scoliosis. Back pain Hypertension. Peripheral neuropathy following Hooper gloria surgery. Past Surgical History 6x Back surgeries including: Spinal cord stimulator implant. Hooper gloria placement and replacement. Debridement of ulcer on her left foot. Vertebral fracture repair July 2014. Multiple epidurals for back pain relief. 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 Ambulatory at baseline with braces. lives by self Ambulatory Status Cane Review of Systems Full Review of Systems Constitutional: Denies: Chills, Fever Respiratory: Denies: Non-productive cough, Shortness of breath Cardiovascular: Denies: Chest pain GI: Reports: Diarrhea, Nausea, Vomiting, Denies: Bloody/tarry stool, Hematemesis, Hematochezia, Melena Musculoskeletal: Reports: Back pain Complete sys rev & neg: except as marked. Physical Exam Vital Signs Vital Signs Date Time Temp Pulse Resp B/P Pulse Ox O2 Delivery O2 Flow Rate FiO2 09/23/16 06:29 36.9 92 18 124/81 94 Room Air 09/23/16 04:58 36.8 99 17 160/90 98 Room Air 09/23/16 01:00 37.4 102 16 185/105 97 Room Air 09/22/16 21:08 93 22 149/88 98 Room Air Initial VS: Reviewed Head / Eyes: Atraumatic, Normocephalic Neck: Supple, Non-tender, Full range of motion Extremities: Vascular intact, Neuro intact, No swelling, No tenderness Skin: Warm, Dry, No cyanosis Neurologic: Alert, Oriented, Nonfocal General/Constitutional: Awake, Alert, Well developed, Well nourished ENT: Airway patent Mouth: Positive: Mucous membranes dry Respiratory / Chest: Breath sounds NL, No respiratory distress, No rales, No rhonchi, No wheezing Cardiovascular: Regular rhythm, No murmurs, No rubs Heart Rate / Rhythm: Positive: Tachycardia Abdomen: Soft, No guarding, No rebound Tenderness/Guarding/Rebound: Positive: Tender diffuse Interpretation & Diagnostics Lab Results Interpretation Result Diagram: 3/31/17 2110 3/31/17 2110 Test 09/22/16 21:10 09/22/16 21:20 09/23/16 00:44 White Blood Count 10.7th/mm3 (3.8-10.1) Red Blood Count 5.43mil/mm3 (3.90-5.20) Hemoglobin 15.1g/dL (12.0-15.6) Hematocrit 42.4% (35.0-46.0) Mean Corpuscular Volume 78.1fL (81-100) Mean Corpuscular Hemoglobin 27.8pg (27.0-35.0) Mean Corpuscular Hemoglobin Concent 35.6% (32.0-37.0) Red Cell Distribution Width 12.2% (12.3-15.4) Platelet Count 315bil/L (150-400) Neutrophils (%) (Auto) 91.6% (40-74) Lymphocytes (%) (Auto) 4.6% (14-46) Monocytes (%) (Auto) 3.6% (4-12) Eosinophils (%) (Auto) 0% (0-5) Basophils (%) (Auto) 0.1% (0-3) Prothrombin Time 10.1sec (8.1-12.5) Prothromb Time International Ratio 0.95ratio Sodium Level 133mEq/L (134-144) Potassium Level 3.7mEq/L (3.5-5.2) Chloride Level 93mEq/L (97-108) Carbon Dioxide Level 20mmol/L (18-29) Blood Urea Nitrogen 11mg/dL (6-24) Creatinine 0.52mg/dL (0.57-1.00) Estimat Glomerular Filtration Rate 174mL/min (>59) Glucose Level 159mg/dL (60-99) Calcium Level 10.3mg/dL (8.5-10.1) Magnesium Level 1.9mg/dL (1.6-2.6) Total Bilirubin 0.5mg/dL (0.0-1.2) Aspartate Amino Transf (AST/SGOT) 22U/L (0-50) Alanine Aminotransferase (ALT/SGPT) 12U/L (0-32) Alkaline Phosphatase 71U/L (25-150) Total Protein 8.1g/dL (6.4-8.4) Albumin 4.7g/dL (3.4-5.0) Lipase 27U/L (13-60) Hold Purple Top Tube Received (Received) Hold Blue Top Tube Received (Received) Hold Red Top Tube Received (Received) Hold [place] Top Tube Received (Received) Hold [place] Top Tube Received (Received) Urine Color Straw (YELLOW) Urine Appearance Clear (CLEAR,HAZY) Urine pH 6.5 (5.0-8.0) Urine Specific [place] 1.010 (1.003-1.035) Urine Protein Negativemg/dL (NEG,TRACE) Urine Glucose (UA) Negativemg/dL (NEGATIVE) Urine Ketones 15mg/dL (NEGATIVE) Urine Occult Blood Trace (NEGATIVE) Urine Nitrite Negative (NEGATIVE) Urine Bilirubin Negative (NEGATIVE) Urine Urobilinogen Normalmg/dL (NORMAL) Urine Leukocyte Esterase Negative (NEGATIVE) Urine RBC 0-2/hpf (0-2) Urine WBC 0-5/hpf (0-5) Urine Epithelial Cells Occasional/hpf (NONE-MOD) Urine Crystals None seen (NONE SEEN) Urine Bacteria Few/hpf (NONE-FEW) Urine Hyaline Casts None/lpf (NONE) Urine Granular Casts None seen (NONE SEEN) Urine Waxy Casts None seen (NONE SEEN) Urine Red Blood Cell Casts None seen (NONE SEEN) Urine White Blood Cell Casts None seen (NONE SEEN) Urine Mucus None seen (None Seen) Urine Trichomonas None seen (NONE SEEN) Urine Yeast None (NONE SEEN) Urinalysis Comment None Urine Culture Reflexed Not indicated Re-Eval/Medical Decision Med Decision/Clinical Course 56-year-old with apparent cyclic vomiting is presented multiple times with similar symptoms, is unable to keep her pain meds down since yesterday. She denies being out of them. She was provided with IV morphine and ultimately oral pain meds. She continues to have some nausea and is had multiple doses of nausea medicines. She is provided with ondansetron and high-dose Phenergan suppositories for home use. Source of Hx: Old records Time of Eval: 04:53 Re-Evaluation/Progress Note: Discussed lab results and plan to discharge. Patient is amenable to the plan. Return precautions given. All other questions addressed. Time of Eval: 05:00 Re-Evaluation/Progress Note: Patient vomited her medications. Time of Eval: 05:20 Re-Evaluation/Progress Note: Informed patient that she will be discharged when she is able to tolerate PO intake. Counseled Regarding: Diagnosis, Lab results, Need for follow-up, When/why to return to ED Discharge & Departure Primary Impression: Nausea and vomiting Additional Impressions: Acute gastroenteritis Cyclical vomiting Chronic back pain Disposition: Home Discharge Condition All VS Reviewed: Yes Condition: Stable Patient Instructions: Acute Nausea and Vomiting (DC) Additional Instructions: Take ondansetron as directed for nausea. Take Phenergan suppositories if additional nausea relief is needed Continue/resume your pain medications as prescribed. Return to the ER if you develop uncontrollable vomiting or diarrhea, blood in your vomit or stool, or any other worsening or concerning symptoms. Referrals: OTHER,PHYSICIAN (PCP) Scribe Attestation Portions of this note were transcribed by Samuel Herrera. I, Dr. Concepcion, personally performed the history, physical exam and medical decision-making; I reviewed and confirmed the accuracy of the information in the transcribed note. Signed by: Kel Roger. 09/23/2016 - 05:20 Khoa Concepcion MD Sep 22, 2016 21:32 SAMUEL HERRERA Sep 22, 2016 21:40
[2016-09-22] MEDS ORDERED: Haloperidol 5 mg/mL Inj IVPUSH ONE ×2 (21:35→23:00)
[2016-09-22] MEDS ORDERED: 0.9% Sodium Chloride 1,000 ML IV ONE (21:35)
[2016-09-22] MEDS ORDERED: Ondansetron 2 mg/mL 2 mL Inj IVPUSH ONE ×2 (21:35→23:00)
[2016-09-22] MEDS ORDERED: Pantoprazole 4 mg/mL 10 mL Inj IVPUSH ONE (21:35)
[2016-09-22 21:48] LABS: BASOPHILS % (AUTO) 0.1 % (0-3); EOSINOPHILS % (AUTO) 0 % (0-5); MONOCYTES % (AUTO) 3.6 % (4-12); Mean Corpuscular Hemoglobin 27.8 pg (27.0-35.0); Mean Corpuscular Volume 78.1 fL (81-100); NEUTROPHILS % (AUTO) 91.6 % (40-74); Platelet Count 315 bil/L (150-400)
[2016-09-22 21:53] LABS: INR 0.95 ratio
[2016-09-22 21:57] LABS: Magnesium 1.9 mg/dL (1.6-2.6)
[2016-09-23 00:57] LABS: APPEARANCE,URINE CLEAR (CLEAR,HAZY); COLOR,URINE STRAW (YELLOW); OCCULT BLOOD,URINE TRACE (NEGATIVE); PH,URINE 6.5 (5.0-8.0); UROBILINOGEN,URINE NORMAL (NORMAL)
[2016-09-23 01:00] VITALS: BP 185/105; PULSE 102; RESP 16; O2SAT 97
[2016-09-23] MEDS ORDERED: Morphine ER 100 mg (MS Contin) Tablet PO ONE (03:35)
[2016-09-23] MEDS ORDERED: Morphine ER 30 mg (MS Contin) Tablet PO ONE (04:30)
[2016-09-23] MEDS ORDERED: [UNRECOGNIZED DRUG - CODE] RECTAL (04:48)
[2016-09-23] MEDS ORDERED: ONDA8TAB10 PO (04:50)
[2016-09-23 04:58] VITALS: BP 160/90; PULSE 99; RESP 17; O2SAT 98
[2016-09-23] MEDS ORDERED: Haloperidol 5 mg/mL Inj IVPUSH ONE (05:20)
[2016-09-23] MEDS ORDERED: 0.9% Sodium Chloride 1,000 ML IV SCH (05:20)
[2016-09-23 06:29] VITALS: BP 124/81; PULSE 92; RESP 18; O2SAT 94
== END 2016-09-23 09:34 | disposition home or self-care (01) ==
LOC: SED 20:58
DX: G43.A0 Cyclical vomiting, in migraine, not intractable (principal); K52.9 Noninfective gastroenteritis and colitis, unspecified; M54.9 Dorsalgia, unspecified; G89.29 Other chronic pain; I10 Essential (primary) hypertension; Z98.890 Other specified postprocedural states; Z88.2 Allergy status to sulfonamides
CPT/HCPCS: 36415; 80053; 81000; 83690; 83735; 85025; 85610; 96361; 96374; 96375; 96376; 99285; J1200; J1630; J2270; J2405; J7030